=== PATIENT | female | born 1995 | race Caucasian/White ===

== ENCOUNTER → 2019-04-17 14:58 | Outpatient (BNVA) | payer OTHER, SELFPAY | PROVIDERS: PCP Nurse Practitioner; Visit Provider Obstetrics & Gynecology | DX: Z34.02 Encounter for supervision of normal first pregnancy, second trimester | CPT/HCPCS: 82950; 84315; 85027 ==

== ENCOUNTER → 2019-04-27 08:21 | Outpatient (BNVA) | payer OTHER, SELFPAY | PROVIDERS: PCP Nurse Practitioner; Visit Provider Nurse Practitioner Women's Health | DX: Z01.89 Encounter for other specified special examinations (principal) | CPT/HCPCS: 84315 ==

== ENCOUNTER 2019-04-30 09:18 | Outpatient (CLI) | payer OTHER, SELFPAY ==
--- NOTE | 2019-04-30 09:30 | USCV_ITS ---
Candace Velásquez Age: 23 Gender: F : 1995 Exam Date: 04/30/2019 09:39 Ordering Phys: Ricki Meyers MD ([email or web address]) Technologist: Perri Ordaz Exam Location: [facility] [place] Indication: murmur in BP: / HR: 76 Rhythm: Sinus Technical Quality: Good MEASUREMENTS (Male / Female) Normal Values 2D ECHO LV Diastolic Diameter PLAX 5.3 cm 4.2 - 5.9 / 3.9 - 5.3 cm LV Systolic Diameter PLAX 3.7 cm IVS Diastolic Thickness 0.8 cm 0.6 - 1.0 / 0.6 - 0.9 cm IVS Systolic Thickness 1.1 cm LVPW Diastolic Thickness 0.8 cm 0.6 - 1.0 / 0.6 - 0.9 cm LVPW Systolic Thickness 1.4 cm LVOT Diameter 2.2 cm LV Ejection Fraction 2D Teich 57.9 % LV Ejection Fraction MOD 2C 74.5 % LV Ejection Fraction 2C AL 76.0 % LA Diameter 3.7 cm LA Width 2.8 cm LA Height 5.0 cm RA Width 3.1 cm RA Height 4.1 cm M-MODE LV Diastolic Diameter MM 5.6 cm 4.2 - 5.9 / 3.9 - 5.3 cm LV Systolic Diameter MM 3.9 cm LV Ejection Fraction MM Teich 55.6 % IVS Diastolic Thickness MM 0.7 cm 0.6 - 1.0 / 0.6 - 0.9 cm IVS Systolic Thickness MM 1.1 cm LVPW Diastolic Thickness MM 0.9 cm 0.6 - 1.0 / 0.6 - 0.9 cm LVPW Systolic Thickness MM 1.2 cm Aortic Annulus Diameter 2.9 cm LA Ao Ratio MM 1.3 MV E Point Septal Separation 1.3 cm DOPPLER AV Peak Velocity 130.0 cm/s LVOT Peak Velocity 90.0 cm/s AV Area Cont Eq vti 2.6 cm squared AV Area Cont Eq pk 2.6 cm squared MV Peak Velocity 95.0 cm/s MV Area PHT 6.5 cm squared Mitral E to A Ratio 1.6 MV E' Velocity 20.0 cm/s Mitral E to MV E' Ratio 6.0 Mitral E to LV E' Lateral Ratio 4.8 Mitral E to LV E' Septal Ratio 8.0 TR Peak Velocity 222.0 cm/s TR Peak Gradient 19.6 mmHg Right Atrial Pressure 3.0 mmHg Pulmonary Artery Systolic Pressu 22.7 mmHg PV Peak Velocity 99.0 cm/s RV Acceleration Time 0.1 s FINDINGS Left Ventricle Normal left ventricular cavity size. No regional wall motion abnormalities. Normal left ventricular systolic function. Left ventricular ejection fraction is estimated at 55 %. Normal diastolic function. Right Ventricle The right ventricle is normal in size and function. Right Atrium The right atrium is normal in size. Left Atrium The left atrium is normal in size. Mitral Valve Structurally normal mitral valve without significant stenosis or prolapse. There is no mitral regurgitation. Aortic Valve Structurally normal trileaflet aortic valve. No aortic valve stenosis. Trace aortic valve regurgitation. Tricuspid Valve Mild tricuspid valve regurgitation. Pulmonic Valve Structurally normal pulmonic valve. Mild pulmonary valve regurgitation. Pericardium Normal pericardium without effusion. Aorta Normal ascending aorta dimension. CONCLUSIONS 1-Normal left ventricular cavity size. No regional wall motion abnormalities. Normal left ventricular systolic function. Left ventricular ejection fraction is estimated at 55 %. Normal diastolic function. 2-Structurally normal mitral valve without significant stenosis or prolapse. There is no mitral regurgitation. 3-Structurally normal trileaflet aortic valve. No aortic valve stenosis. Trace aortic valve regurgitation. 4-Mild tricuspid valve regurgitation. 5-Structurally normal pulmonic valve. Mild pulmonary valve regurgitation. 6-There is no pericardial effusion. 7-Right atrial pressure is around 5 mm of mercury. 8-There are no prior echocardiogram studies to compare. Ricki Meyers MD (Electronically Signed) Final Date: 01 May 2019 10:19 S
== END 2019-04-30 09:19 | disposition home or self-care (01) ==
LOC: US 09:22
PROVIDERS: PCP Nurse Practitioner; Visit Provider Internal Medicine Cardiovascular Disease
DX: Q34.9 Congenital malformation of respiratory system, unspecified (principal); R01.1 Cardiac murmur, unspecified
CPT/HCPCS: 93306

== ENCOUNTER → 2019-05-04 10:36 | Outpatient (BNVA) | payer OTHER, SELFPAY | PROVIDERS: PCP Nurse Practitioner; Visit Provider Obstetrics & Gynecology | DX: Z34.83 Encounter for supervision of other normal pregnancy, third trimester (principal) | CPT/HCPCS: 76816 ==

== ENCOUNTER → 2019-05-11 09:48 | Outpatient (BNVA) | payer OTHER, SELFPAY | PROVIDERS: PCP Nurse Practitioner; Visit Provider Nurse Practitioner Women's Health | DX: Z01.89 Encounter for other specified special examinations (principal) | CPT/HCPCS: 84315 ==

== ENCOUNTER → 2019-05-25 08:38 | Outpatient (BNVA) | payer OTHER, SELFPAY | PROVIDERS: PCP Nurse Practitioner; Visit Provider Obstetrics & Gynecology | DX: Z01.89 Encounter for other specified special examinations (principal) | CPT/HCPCS: 84315 ==

== ENCOUNTER → 2019-06-11 09:01 | Outpatient (BNVA) | payer OTHER, SELFPAY | PROVIDERS: PCP Nurse Practitioner; Visit Provider Obstetrics & Gynecology | DX: Z34.03 Encounter for supervision of normal first pregnancy, third trimester (principal); B37.3 Candidiasis of vulva and vagina | CPT/HCPCS: 84315; 87081 ==

== ENCOUNTER 2019-06-16 11:05 | Outpatient (CLI) | payer OTHER, SELFPAY ==
[2019-06-16 11:25] VITALS: BP 119/66; PULSE 104; RESP 17; TEMP 36.6
--- NOTE | 2019-06-16 11:44 | USR_ITS ---
PROCEDURE INFORMATION: Exam: US , Limited Exam date and time: 06/16/2019 11:46 AM Age: 23 years old Clinical indication: complicated by abdominal or pelvic pain; Lower; Third trimester; Gestational age or lmp: 37 wks 2 days; ; Additional info: Rule out abruption TECHNIQUE: Imaging protocol: Real-time ultrasound of the maternal uterus with image documentation. Exam focused on the clinical indication. COMPARISON: [place] [id number] 05/04/2019 10:36 AM FINDINGS: GESTATION: Gestation: Intrauterine gestation in vertex position. Positive cardiac activity is documented at 144 bpm. Cervix: Not visualized. Amniotic fluid: Subjectively within normal limits with the deepest pocket measures approximately 6.6 x 6.1 cm. Placenta: The placenta is posterior-fundal in location and unremarkable upon limited evaluation. US/US OB limited [id number] IMPRESSION: 1. Single live intrauterine in vertex position with positive cardiac activity documented at 144 bpm. 2. The placenta is posterior-fundal in location and appears unremarkable upon limited evaluation. If there is continued concern for abruption, continued clinical surveillance is suggested with follow-up imaging as warranted. 3. Amniotic fluid appears within normal limits with the deepest pocket measuring approximately 6.6 x 6.1 cm.
[2019-06-16 11:59] VITALS: BP 120/67; PULSE 101; RESP 16
[2019-06-16 12:10] VITALS: BMI 42.1
[2019-06-16 13:41] VITALS: BP 133/65; PULSE 98
== END 2019-06-16 14:40 | disposition home or self-care (01) ==
LOC: ONCMED 11:38 → OBGYN 13:50 → OPOB 06-18 14:23
PROVIDERS: PCP Nurse Practitioner; Visit Provider Obstetrics & Gynecology
DX: Z04.89 Encounter for examination and observation for other specified reasons (principal)
CPT/HCPCS: 59025; 76815; 99211

== ENCOUNTER 2019-06-18 10:00 | Outpatient (CLI) | payer OTHER, SELFPAY ==
[2019-06-18] VITALS (10 sets, daily range): BP systolic 0–131; BP diastolic 0–77; PULSE 84–98; RESP 18; TEMP 36.9; BMI 42.2
--- NOTE | 2019-06-18 10:14 | PC.NURSE ---
UPON ARRIVAL PATIENT STATES SHE IS NOT IN ANY PAIN, NO COMPLAINTS OF HEADACHES, AND NO BLURRED VISION.
--- NOTE | 2019-06-18 10:36 | US_ITS ---
WS: [id number] OB ultrasound for biophysical profile, 06/18/2019 Clinical Data: Increased BP Comparison: OB ultrasound, 06/16/2019. Findings: There is a single intrauterine in the vertex presentation. The heart rate is 147 beat s per minute. The cervical length is 3.7 and it is closed. The placenta is posterior and fundal. The biophysical profile is 8 of 8 with normal scores for breathing, movement, posture and tone and amniotic fluid volume. US/US OB BPP NST [id number] Impression: 1. Single intrauterine in vertex presentation. 2. Biophysical profile 8 of 8. 3. heart rate 147 beats per minute.
--- NOTE | 2019-06-18 11:03 | PC.NURSE ---
Ultra Sound being performed
[2019-06-18 11:26] LABS: Add Urine Microscopic? YES; Bilirubin Urine Neg (NEGATIVE); Blood Urine 2+ (Negative); Glucose Urine UA Norm (Normal); Ketones Urine Negative (Negative); Leukocyte Esterase Urine Negative (Negative); Nitrate Urine Negative (Negative); Protein Urine Neg (Negative); Urine Appearance Clear (CLEAR); Urine Color Yellow (Yellow); Urobilinogen Urine Norm (Negative); pH Urine 7 (5-7)
[2019-06-18 11:27] LABS: Basophils # 0.1 10^3/uL (0.0-0.1); Basophils % 0.4 %; Eosinophils # 0.2 10^3/uL (0.0-0.8); Hematocrit 33.7 % (37.0-47.0); Hemoglobin 10.9 g/dL (11.5-15.3); Lymphocytes # 3.1 10^3/uL (0.8-4.8); Lymphocytes % 18.9 %; Mean Corpuscular HGB Conc 32.3 g/dL (30.0-36.0); Mean Corpuscular Hemoglobin 27.3 pg (28.0-34.0); Mean Corpuscular Volume 84.3 fL (81-99); Mean Platelet Volume 10.1 fL (7.4-10.4); Monocytes % 6.2 %; Neutrophils # 11.8 10^3/uL (1.8-7.7); Neutrophils % 71.1 %; Nucleated Red Blood Cells % 0 %; Platelet Count 436 10^3/cmm (130-400); Red Cell Distribution Width 13.3 % (12.1-15.1); White Blood Count 16.6 10^3/uL (4.0-10.0)
[2019-06-18 11:32] LABS: Add Urine Culture? No; Bacteria Urine 1+; Mucus Urine 1+; Squamous Epithelial Cell Urine 0-4 (0-5)
[2019-06-18 11:38] LABS: Alanine Aminotransferase 8 U/L (0-33); Albumin Level 3.7 g/dL (3.5-5.2); Alkaline Phosphatase 135 IU/L (35-105); Anion Gap 17.9 (5-19); Aspartate Amino Transferase 15 U/L (0-32); Blood Urea Nitrogen 7 mg/dL (6-20); Calcium 9.8 mg/dL (8.5-10.5); Carbon Dioxide 20 mmol/L (22-29); Chloride 102 mmol/L (98-107); Globulin 3.2 g/dL (1.3-4.6); Glomerular Filtration Rate 122.8 mL/min (90-130); Glucose 104 mg/dL (65-115); Osmolality Calculated 278 mOsm/kg (285-295); Potassium 3.9 mmol/L (3.5-5.1); Sodium 136 mmol/L (136-145); Total Bilirubin 0.2 mg/dL (0.15-1.2); Total Protein 6.9 g/dL (6.6-8.7); Uric Acid 4.4 mg/dL (2.4-5.7)
[2019-06-18 11:40] LABS: Urine Creatinine 143 mg/dL (28-217); Urine Protein Random 14 mg/dL
--- NOTE | 2019-06-21 09:42 | P.ANESASSM_ITS ---
Pre-Anesthetic Assessment Pre-Anesthetic Assessment: Height/Weight: Height 1.78 m Weight 133.356 kg Temp Pulse Resp BP 98.4 F 84 18 119/72 06/18/19 12:04 06/18/19 12:04 06/18/19 12:04 06/18/19 12:04 Social: Social History: Tobacco (quit 2015) and No alcohol Exam: Pre-Anes Outpt Exam: alert, oriented x 3, clear to auscultation bilaterally and regular rate & rhythm Airway: Submandibular: WNL Cervical ROM: WNL MP: 3 Dentition: Other (ok) History/ROS: No significant history except as noted Pulmonary: Pulmonary: Asthma (mild) CV/HEM: CV/HEM: None reported : : None reported Hepatic: Hepatic: None reported GI: GI: GERD (occ) Metabolic: Metabolic: Morbid obesity Musc/skel: Musc/skel: Fibromyalgia Neuropsych: Neuropsych: Anxiety and Depression Comments: PTSD Anesthetic Plan: ASA status: 2 Anesthesia: Anesthesia Evaluation and Eval. for regional block (labor epidural) Risk of > 500 ml blood loss (7ml/kg in children): No PFSH Anesthesia PFSH: Medical History Chronic headache Fibromyalgia She states that she was diagnosed with fibromyalgia in 2018. Has never been on any medication for this. Mild intermittent asthma without complication Diagnosed with asthma as a child. She states that she is largely asymptomatic and uses her albuterol inhaler 1 or 2 times a month. Patient denies medical problems : Patient denies history of PE/DVT/clotting disorders, asthma, lung, liver heart, thyroid, kidney disease, hypertension or diabetes, genital herpes for herself or her partner. PCP: at the [facility] PTSD (post-traumatic stress disorder) States that she has anxiety and depression which was previously managed with amitriptyline BuSpar and Lexapro. She states that when she found out she was she stopped using these medications as she was worried about its eff ect on the . Currently denies suicidal/homicidal ideation. This is managed by Dr. garcias at the [facility] Social History Smoking and tobacco status: former smoker Alcohol intake: former Desire information about alcohol rehabilitation?: No Additional social history: - Tobacco use: Started smoking at age 17 and smoked 1/2-1 pack per day until she quit at age 19. Denies any tobacco use since then. Alcohol Use ? denies Drug Use: Denies Current Work/Study Status: Unemployed not looking for work. Female Reproductive History: : 1 Data Anesthesia CBC & Chem 7: 06/18/19 10:45 06/18/19 10:45 Cardiac Studies: No Data to Display
== END 2019-06-18 12:00 | disposition home or self-care (01) ==
LOC: OPOB 10:10 → OBGYN 11:53 → OPOB 14:18
PROVIDERS: PCP Nurse Practitioner; Visit Provider Obstetrics & Gynecology
DX: O16.9 Unspecified maternal hypertension, unspecified trimester (principal); Z3A.00 Weeks of gestation of pregnancy not specified
CPT/HCPCS: 36415; 76819; 80053; 81001; 82570; 84156; 84315; 84550; 85025; 99211

== ENCOUNTER → 2019-06-26 07:59 | Outpatient (BNVA) | payer OTHER, SELFPAY | PROVIDERS: PCP Nurse Practitioner; Visit Provider Obstetrics & Gynecology | DX: Z34.03 Encounter for supervision of normal first pregnancy, third trimester (principal) | CPT/HCPCS: 80053; 84315 ==

== ENCOUNTER → 2019-07-02 08:03 | Outpatient (BNVA) | payer OTHER, SELFPAY | PROVIDERS: PCP Nurse Practitioner; Visit Provider Obstetrics & Gynecology | DX: Z46.89 Encounter for fitting and adjustment of other specified devices (principal) | CPT/HCPCS: 84315 ==

== ENCOUNTER 2019-07-04 19:11 | Inpatient (IN) | payer OTHER, SELFPAY ==
[2019-07-04] VITALS (17 sets, daily range): BP systolic 0–144; BP diastolic 0–96; PULSE 80–96; RESP 14–16; TEMP 36.8; BMI 43.6
[2019-07-04] MEDS: miSOPROStol 100 mcg tablet 25 MCG VAGINAL (20:29)
[2019-07-04 20:40] LABS: Basophils # 0.1 10^3/uL (0.0-0.1); Basophils % 0.4 %; Eosinophils # 0.2 10^3/uL (0.0-0.8); Eosinophils % 1.5 %; Hematocrit 31.3 % (37.0-47.0); Hemoglobin 10.3 g/dL (11.5-15.3); Lymphocytes # 3.6 10^3/uL (0.8-4.8); Lymphocytes % 23.1 %; Mean Corpuscular HGB Conc 32.9 g/dL (30.0-36.0); Mean Corpuscular Hemoglobin 27.8 pg (28.0-34.0); Mean Corpuscular Volume 84.6 fL (81-99); Mean Platelet Volume 10.3 fL (7.4-10.4); Monocytes # 0.9 10^3/uL (0.2-0.9); Monocytes % 6.1 %; Neutrophils # 10.3 10^3/uL (1.8-7.7); Neutrophils % 67.1 %; Nucleated Red Blood Cells % 0 %; Platelet Count 411 10^3/cmm (130-400); Red Cell Distribution Width 13.6 % (12.1-15.1); White Blood Count 15.4 10^3/uL (4.0-10.0)
[2019-07-04 20:49] LABS: Add Urine Microscopic? YES; Bilirubin Urine Neg (NEGATIVE); Blood Urine 3+ (Negative); Glucose Urine UA Norm (Normal); Ketones Urine 1+ (Negative); Leukocyte Esterase Urine Negative (Negative); Nitrate Urine Negative (Negative); Protein Urine 1+ (Negative); Urine Appearance Turbid (CLEAR); Urine Color Red (Yellow); Urobilinogen Urine Norm (Negative); pH Urine 7 (5-7)
[2019-07-04 20:59] LABS: Alanine Aminotransferase 14 U/L (0-33); Albumin Level 3.4 g/dL (3.5-5.2); Alkaline Phosphatase 149 IU/L (35-105); Anion Gap 17.9 (5-19); Aspartate Amino Transferase 17 U/L (0-32); Blood Urea Nitrogen 14 mg/dL (6-20); Calcium 10.1 mg/dL (8.5-10.5); Carbon Dioxide 19 mmol/L (22-29); Chloride 102 mmol/L (98-107); Globulin 2.9 g/dL (1.3-4.6); Glucose 107 mg/dL (65-115); Osmolality Calculated 277 mOsm/kg (285-295); Potassium 3.9 mmol/L (3.5-5.1); Sodium 135 mmol/L (136-145); Total Bilirubin 0.2 mg/dL (0.15-1.2); Total Protein 6.3 g/dL (6.6-8.7)
[2019-07-04 21:00] LABS: Urine Creatinine 168 mg/dL (28-217)
[2019-07-04 21:04] LABS: UPRO/UCREAT Ratio 0.14 mg/mg CR; Urine Protein Random 24 mg/dL
[2019-07-04 21:32] LABS: Add Urine Culture? Yes; Bacteria Urine 2+; RBC Urine TOO NUMEROUS TO CNT /hpf (0-2); Squamous Epithelial Cell Urine 0-4 (0-5); WBC Urine 0-4 /hpf (0-5)
[2019-07-05] VITALS (103 sets, daily range): BP systolic 0–158; BP diastolic 0–96; PULSE 69–104; RESP 16–18; TEMP 36.7–36.9; O2SAT 93–100
[2019-07-05] MEDS: miSOPROStol 100 mcg tablet 25 MCG VAGINAL ×2 (00:56→04:36)
--- NOTE | 2019-07-05 08:07 | P.HP_ITS ---
Providers/Chief Complaint Admitting Physician: Macario Shelby DO Primary IT COMMUNICATIONS MANAGER: Dr. Vidales Primary Care Provider: CASTILLO Christie Chief Complaint: induction HPI IT COMMUNICATIONS MANAGER History of Present Illness Chief complaint: Induction of labor 39+6 History chief complaint Candace Velásquez is a 23 year old female 1 para 0 with a EDC of 07/05/2019 admitted last p.m. for cervical ripening with induction of labor. Time of admission her cervix described as being 60% 2 cm vertex -2 station. She had a reassuring category 1 tracing. She did undergo Tato Prostin 0.25 mg per vagina q. 4 hours x 3 this morning she is resting comfortably in bed has had breakfast. She has no complaints is having some uterine contractions. During the evening her blood pressures were 120s to 130s over 80s. Previously in the office she had had a blood pressure diastolic in the 90s. Labs last night were unremarkable platelets over 400,000 normal chemistries with liver functions however creatinine was elevated at 1.1. Her protein/creatinine ratio is 0.14. She denies any signs and symptoms of preeclampsia no headaches no visual changes no right upper quadrant pain no nausea or vomiting no excessive swelling. Results OB Labs - EDPS----> OBI: 11 28:10 PPE: LABS: 12/13/2018 Blood type: O positive Antibody screen : Negative Intake CBC: 14.7<12.9/38.7>437 Cystic fibrosis: declined Rubella : Immune Hepatitis B surface antigen: Nonreactive Hepatitis C antibody: Nonreactive RPR: Nonreactive HIV: declined Drug screen: negative Urine culture: 10,000-20,000 contaminants, no GBS TSH: 1.27-normal early GCT: 93 12/22/2018 Gonorrhea: Negative Chlamydia: Negative Pap smear: Negative for intraepithelial lesion or malignancy 01/19/2019 Quad screen: Declined. 02/16/2019: CBC: 15.1<10.9/33.4> 488---started on ferrous sulfate 325 mg twice a day 04/17/2019 28 week CBC: 14.1 < 10.6/32.5 > 475 GCT: 124 06/11/19 GBS: negative 06/18/2019 Urine culture: Hematuria: 10,000-20,000 contaminants, no GBS L&D---elevated BP--- CBC-16.6<10.9/37.7.> 436 AST/ALT-15/8; BUN/creatinine-7/0.6 Protein creatinine ratio-0.10-normal Uric acid-4.4-normal OB Ultrasound LMP of 09/28/2018 EDC of 07/05/2019 which based on LMP 1) 02/16/2019([facility]-anatomy) AUA-20w1d ZULMA by sono-07/07/2019 S=D -------> male, cephalic, posterior grade 1 placenta without previa, visually normal fluid, LEAD ASSISTANT MANAGER 4.3, cervix transvaginally 4.2 cm, EFW 310 g, 11 ounces, 25 percentile. Visualized anatomy appears normal except for Profile, Nose & Lips, 4 Chamber Heart, Diaphragm, Stomach, Kidneys, Bladder,3 Vessel Cord that were no t clearly visualized secondary to gestational age, patient body habitus and position. Recommend repeat ultrasound at 26 weeks to reassess the structures. 2)04/06/2019([facility]-f/u anatomy) AUA-27w4d ZULMA by sono-07/02/19 S=D ------> single live intrauterine , cephalic, medial, fundal posterior grade 1 placenta without previa, KEENAN 15.5 cm, EFW-2 pounds 4 ounces, 32 percentile. Previously nonvisualized anatomy-Profile, Nose & Lips, 4 Chamber Heart, Diaphragm, Stomach, Kidneys, Bladder,3 Vessel Cord--were visualized and appears within normal limits except for the right kidney which was not clearly seen. Repeat sonogram to assess kidney in 3 to 4 weeks 3) 05/04/2019([facility]-f/u anatomy) AUA-31w5d ZULMA by sono-07/01/2019 S=D --------> single live intrauterine , cephalic, grade 1 fundal placenta, KEENAN 13 cm, EFW 1785 g, 51 percentile. Kidneys appear normal. 4) 06/16/2019([facility] [place]-L&D s/p fall) ------------> single live intrauterine , cephalic, posterior fundal placenta without abruption, LEAD ASSISTANT MANAGER-6.6 cm. Present Details : 1 Para: 0 Labs Rubella: Immune RPR: Negative GBS: Negative Review of Systems Const: Denies: fever, chills or body aches Eyes: Denies: change in vision Card: Denies: chest pain, palpitations, irregular heart rhythm, swelling of feet/ankles or lightheadedness Resp: Denies: shortness of breath or non-productive cough GI: Denies: abdominal pain or nausea : Denies: difficulty urinating, painful urination, urinary urgency, genital lesion, genital itching or vaginal odor Musc: Denies: extremity pain or extremity swelling Skin/Breast: Denies: rash Neuro: Denies: headache, numbness in extremities or weakness in extremities Psych: Denies: anxiety or depression Endo: Denies: cold intolerance or heat intolerance David/Lymph: Denies: easy bruising All/Imm: Denies: hives Medications/Allergies Allergies Allergy/AdvReac Type Severity Reaction Status Date / Time sulfamethoxazole Allergy Hives Verified 07/02/19 08:04 [From Bactrim] trimethoprim [From Bactrim] Allergy Hives Verified 07/02/19 08:04 PFSH IT COMMUNICATIONS MANAGER PFSH: Medical History Chronic headache Fibromyalgia She states that she was diagnosed with fibromyalgia in 2018. Has never been on any medication for this. Mild intermittent asthma without complication Diagnosed with asthma as a child. She states that she is largely asymptomatic and uses her albuterol inhaler 1 or 2 times a month. Patient denies medical problems : Patient denies history of PE/DVT/clotting disorders, asthma, lung, liver heart, thyroid, kidney disease, hypertension or diabetes, genital herpes for herself or her partner. PCP: at [facility] PTSD (post-traumatic stress disorder) States that she has anxiety and depression which was previously managed with amitriptyline BuSpar and Lexapro. She states that when she found out she was she stopped using these medications as she was worried about its effect on the . Currently denies suicidal/homicidal ideation. This is managed by Dr. garcias at the [facility] Social History Smoking and tobacco status: former smoker Alcohol intake: unknown Additional social history: - Tobacco use: Started smoking at age 17 and smoked 1/2-1 pack per day until she quit at age 19. Denies any tobacco use since then. Alcohol Use ? denies Drug Use: Denies Current Work/Study Status: Unemployed not looking for work. Other Female Reproductive History: Hx Age of Menarche: 11 Menstrual history comments: Menstrual history comments: Menarche at age 11 with regular 28-day cycles lasting for 7 to 8 days with normal flow Sexual History: Sexual History Comment: Coitarche he at age 17, less than 5 lifetime partners, she and her Reymundo have been together since 2013. He is a industrial truck mechanic. Hx Sexually Transmitted Diseases: No (On 12/13/2018 hepatitis B, hepatitis C and syphilis were negative. She declined HIV testing stating that it was negative in the [employer].) Contraception: Contraception History Comment: Has used Depo-Provera, Nexplanon, patches and control pills in the past for contraception. Depo- Provera made her carmichael but otherwise she like the other forms of contraception. She used the control pill low Ovral which worked well for her and this is what she would like to use as well Personal Safety: Do you feel safe at home: Yes History History History 1 Term 0 Miscarriages/Ectopic 0 0 Living Children 0 Care ZULMA Calculator Estimated Delivery Date Method Current WG Current Estimate 07/05/19 LMP (Certain) 40w 0d Expected Delivery Route/Plan Vaginal Specific Issues/Plans * Obesity-BMI 41 * Anemia in -compliant with iron * History of PTSD with depression-on medication prior to the -no med ication during -higher risk of depression OB Visit Log Initial Weight: 117.934 kg Date -?-?-?-?-?-?-?-?-?-?-?- EGA Weight BP Albumin -?-?-?-?-?-?-?-?-?-?-?-?- Glucose Nitrate -?-?-?-?-?-?-?-?-?-?-?-?- Blood Fun Ht PRES HR MVMT -?-?-?-?-?-?-?-?-?-?-?-?- Edema Dilation Effacement -?-?-?-?-?-?-?-?-?-?-?-?- Station 12/07/18 -?-?-?-?-?-?-?-?-?-?-?- 10w 0d 117.934 kg (+0 g) 131/83 TRACE NORMAL -?-?-?-?-?-?-?-?-?-?-?-?- NEGATIVE -?-?-?-?-?-?-?-?-?-?-?-?- -?-?-?-?-?-?-?-?-?-?-?-?- NOT EXAMINE -?-?-?-?-?-?-?-?-?-?-?-?- 12/13/18 -?-?-?-?-?-?-?-?-?-?-?- 10w 6d 118.841 kg (+907.184 g) 112/80 NORMAL NEGATIVE -?-?-?-?-?-?-?-?-?-?-?-?- NORMAL -?-?-?-?-?-?-?-?-?-?-?-?- 165bpm/ present by ultrasoun d -?-?-?-?-?-?-?-?-?-?-?-?- negative NOT EXAMINED -?-?-?-?-?-?-?-?-?-?-?-?- 12/22/18 -?-?-?-?-?-?-?-?-?-?-?- 12w 1d 117.934 kg (+0 g) 108/70 NORMAL 1+ ALBUMIN -?-?--?-?-?-?-?-?-?-?-?-?- NEGATIVE -?-?-?-?--?-?-?-?-?-?-?-?- 155bpm/ present by ultrasoun d -?-?-?-?-?-?-?--?-?-?-?-?- negative CLOSED UNEFFACED -?-?-?-?-?-?-?-?-?-?-?-?- 01/19/19 -?-?-?-?-?-?-?-?-?-?-?- 16w 1d 118.9 kg (+966.151 g) 130/88 TRACE ALBUMIN NORMAL -?-?-?-?-?-?-?-?-?-?-?-?- NEGATIVE -?-?-?-?-?-?-?-?-?-?-?-?- 159bpm/ present by gracy P RESENT -?-?-?-?-?-?-?-?-?-?-?-?- negative -?-?-?-?-?-?-?-?-?-?-?-?- 02/16/19 -?-?-?-?-?-?-?-?-?-?-?- 20w 1d 118.388 kg (+453.592 g) 122/68 NORMAL NEGATIVE -?-?-?-?-?-?--?-?-?-?-?-?- NEGATIVE -?-?-?-?-?-?-?-?--?-?-?-?- 157bpm/ present by casi d PRESENT -?-?-?-?--?-?-?-?-?-?-?-?- negative NOT EXAMINED -?-?-?-?-?-?-?-?-?-?-?-?- 03/13/19 -?-?-?-?-?-?-?-?-?-?-?- 23w 5d 120.202 kg (+2.268 kg) 130/90 NORMAL -?-?-?-?-?-?-?-?-?-?-?-?- NEGATIVE -?-?-?-?-?-?-?-?-?-?-?-?- 24CM 145bpm/ present by yonie P RESENT -?-?-?-?-?-?-?-?-?-?-?-?- trace in hands trace in feet neg in face NOT EXAMINED -?-?-?-?-?-?-?-?-?-?-?-?- 04/17/19 -?-?-?-?-?-?-?-?-?-?-?- 28w 5d 125.645 kg (+7.711 kg) 122/80 NEGATIVE -?-?-?-?-?-?-?-?-?-?-?-?- NEGATIVE -?-?-?-?-?-?-?-?-?-?-?-?- 29CM 150bpm/[facility] [place] [facility] -?-?-?-?-?-?-?-?-?-?-?-?- negative NOT EXAMINED NOT EXAMINED -?-?-?-?-?-?-?-?-?-?-?-?- 04/27/19 -?-?-?-?-?-?-?-?-?-?-?- 30w 1d 125.191 kg (+7.257 kg) 122/82 NEGATIVE -?-?-?-?-?-?-?-?-?-?-?-?- NEGATIVE -?-?-?-?-?-?-?-?-?-?-?-?- 31CM 150bpm/[facility] [place] [facility] -?-?-?-?-?-?-?-?-?-?-?-?- negative CLOSED -?-?-?-?-?-?-?-?-?-?-?-?- 05/11/19 -?-?-?-?-?-?-?-?-?-?-?- 32w 1d 127.006 kg (+9.072 kg) 112/84 NEGATIVE -?-?-?-?-?-?-?-?-?-?-?-?- NEGATIVE -?-?-?-?-?-?-?-?-?-?-?-?- 33CM 142bpm/[facility] [place] [facility] -?-?-?-?-?-?-?-?-?-?-?-?- trace in hands trace in feet NOT EXAMINED -?-?-?-?-?-?-?-?-?-?-?-?- 05/23/19 -?-?-?-?-?-?-?-?-?-?-?- 33w 6d -?-?-?-?-?-?-?-?-?-?-?-?- -?-?-?-?-?-?-?-?-?-?-?-?- -?-?-?-?-?-?-?-?-?-?-?-?- -?-?-?-?-?-?-?-?-?-?-?-?- 05/25/19 -?-?-?-?-?-?-?-?-?-?-?- 34w 1d Neg (Nega tive) -?-?-?-?-?-?-?-?-?-?-?-?- Norm (Normal) Negative (Negat alo) -?-?-?-?-?-?-?-?-?-?-?-?- Trace-inta (Negative) H -?-?-?-?-?-?-?-?-?-?-?-?- -?-?-?-?-?-?-?-?-?-?-?-?- 05/25/19 -?-?-?-?-?-?-?-?-?-?-?- 34w 1d 130.181 kg (+12.247 kg) 104/68 neg -?-?-?-?-?-?-?-?-?-?-?-?- neg -?-?-?-?-?-?-?-?-?-?-?-?- 35 141 present -?-?-?-?-?-?-?-?-?-?-?-?- Trace in feet -?-?-?-?-?-?-?-?-?-?-?-?- 06/11/19 -?-?-?-?-?-?-?-?-?-?-?- 36w 4d 132.449 kg (+14.515 kg) 136/88 Neg (Negati ve) -?-?-?-?-?-?-?-?-?-?-?-?- Norm (Normal) Negative (Negat alo) -?-?-?-?-?-?-?-?-?-?-?-?- Neg (Negative) 36 Cephalic 121 active -?-?-?-?-?-?-?-?-?-?-?-?- 1+ 1 0 -?-?-?-?-?-?-?-?-?-?-?-?- -4 06/18/19 -?-?-?-?-?-?-?-?-?-?-?- 37w 4d 133.81 kg (+15.876 kg) 128/94 126/90 Neg (Negative) -?-?-?-?-?-?-?-?-?--?-?-?- Norm (Normal) Negative (Negat alo) -?-?-?-?-?-?-?-?-?-?-?-?- 1+ (Negative) H 37 Cephalic 142 active -?-?-?-?-?-?-?-?-?-?-?-?- 1+ 1 20 -?-?-?-?-?-?-?-?-?-?-?-?- -4 06/26/19 -?-?-?-?-?-?-?-?-?-?-?- 38w 5d 131.995 kg (+14.061 kg) 120/88 2+ (Negativ e) H -?-?-?-?-?-?-?-?-?-?-?-?- Norm (Normal) Positive (Negat alo) H -?-?-?-?-?-?-?-?-?-?-?-?- 3+ (Negative) H 38 Cephalic 151 active -?-?-?-?-?-?-?-?-?-?-?-?- 1+ 1 20 -?-?-?-?-?-?-?-?-?-?-?-?- -4 07/02/19 -?-?-?-?-?-?-?-?-?-?--?- 39w 4d 134.263 kg (+16.329 kg) 128/88 Neg (Negati ve) -?-?-?-?-?-?-?-?-?-?-?-?- Norm (Normal) Negative (Negat alo) -?-?-?-?--?-?-?-?-?-?-?-?- Trace (Negative) H 40 Cephalic 144 active -?-?-?-?-?-?-?-?--?-?-?-?- absent 1-2 50 -?-?-?-?-?-?-?-?-?-?-?-?- -2 07/04/19 -?-?-?-?-?-?-?-?-?-?-?- 39w 6d 137.892 kg (+19.958 kg) 144/96 100/49 0/0 130/82 0/0 140/71 140/66 0/0 128/65 134/60 125/74 0/0 132/72 120/59 126/59 109/62 119/69 0/0 108/54 118/69 97/45 102/44 99/45 99/44 98/49 124/58 122/64 129/68 85/56 112/56 119/66 117/66 0/0 131/71 128/74 0/0 122/71 0/0 112/69 1+ (Negative) H -?-?-?-?-?-?-?-?-?-?-?-?- Norm (Normal) Negative (Negat alo) -?-?-?-?-?-?-?-?--?-?-?-?- 3+ (Negative) H Ve rtex Vertex Vertex 145 155 135 125 135 125 130 125 130 130 125 130 -?-?-?-?-?-?-?-?-?-?-?-?- -?-?-?-?-?-?-?-?-?--?-?-?- -2 -2 -2 Notes Visit Date: 07/04/19 No visit notes to display Visit Date: 07/02/19 AP@ 39w4d----> no complaints; good cervical change from last visit-me mbranes stripped-increase ambulation; GBS negative; anemia on iron; thrombocythemia-stable; induction scheduled for 07/04/2019 in the evening; depression and asthma stable without medication; normotensive; denies urinary symptoms-urine culture negative from last visit Kelly Scherer MD on 07/02/19 Visit Date: 06/26/19 AP@ 38w5d-----> no complaints; anemia compliant with iron-hemoglobin stable; oadoosefvjchefp-eatohc-bfxrjha prepregnancy; GBS negative; asthma and PTSD-stable; yeast infection resolved with Diflucan; induction discussed and patient will call back with what she wants to do; encourage ambulation; positive nitrates and blood in urine dip-denies urinary symptoms-urine culture sent again today Kelly Scherer MD on 06/30/19 Visit Date: 06/18/19 AP@ 37w4d-----> no complaints; labor consents reviewed; contraception, commercial cleaner discussed; +1 hematuria today-urine culture sent no other sign of i nfection; depression and asthma-stable; elevated blood pressure-to labor and delivery to rule out gestational hypertension versus preeclampsia; anemia compliant with iron; echo results discussed with patient Kelly Scherer MD on 06/18/19 Visit Date: 06/11/19 AP @ 36w4d-----> obesity in -excessive weight gain-suggestions offered; GBS done today; encourage ambulation after 37 weeks; anemia compliant with iron; history of PTSD-increased risk for depression;? History of cardiac abnormality however echocardiogram and visit with cardiology completed-echo was within normal limits; contraception, commercial cleaner, circumcision discussed; asthma-stable; frryjpmzznmamtz-zrzamc-oygvhwdp post Kelly Scherer MD on 06/18/19 Visit Date: 05/25/19 No visit notes to display Visit Date: 05/25/19 No visit notes to display Visit Date: 05/23/19 PRELOAD NOTE Cassandra Lott RN on 05/23/19 Visit Date: 05/11/19 AP @ 32.1 WG - thrombocythemia; awaiting appt with heme; rpt hemagram at 34 weeks - depression; managed without medication - sono at 31 weeks--visible left kidney; no further f/u - anemia; cont with daily iron/increase in diet and in pnv - yeast infection; treated at last visit; resolved - again encouraged tdap; [facility] - symptomology in third trimester discussed. Visit Date: 04/27/19 AP @ 30.1 WG -Thrombocythemia;platelets continue to be elevated; refer to hematology -Depression; managed without medication. -Obesity; 16 pound weight gain thus far; weight goals for the rest of the discussed. -Anemia; compliant with twice daily iron therapy as well as increased iron in the diet and her prenatals with iron. ?No change in her H&H at 28 weeks; repeat hemogram at 34 weeks. -nonvisualized anatomy; profile, nose/lips, four-chamber heart, diaphragm, stomach, bladder, three-vessel cord all visible at her follow-up 27- week sonogram; the left kidney was visualized but was unable to visualize the right kidney. ?Normal KEENAN 15.49; rescan for full evaluation of the right kidney next week. -yeast infection; noted on exam and c/w wet prep;desires otc meds;start monistat 7 - labor precautions and kick counts discussed - Again encouraged Tdap by 32 weeks - education classes scheduled - Anesthesia evaluation discussed and encouraged - GCT/CBC at last visit; discussed today Visit Date: 04/17/19 AP at 28 5/7 weeks. The patient was counseled regarding care, signs and symptoms of labor. ?Patient was counseled now she will be having visits are every 2 weeks. ?She was also counseled regarding diabetes screening. ?Diabetes screening performed today. ?Latest OB ultrasound reports spending. Visit Date: 03/13/19 blood pressure recheck: 108/72 AP @ 23.5 WG - Thrombocythemia; remains elevate at 488; repeat at 28 weeks - Depression; managed without medication; continue to follow - Questionable cardiac abnormality; appointment scheduled in April with [facility] - Incomplete anatomy scan; repeat sono at 26 weeks - GERD; managed without medication - Flu vaccine discussed and encouraged. - labor precautions and kick counts discussed. - education classes discussed and encouraged; schedule provided. - Symptomology of late second trimester discussed - CBC, GCT at next visit. - O POSITIVE BLOOD TYPE Visit Date: 02/16/19 AP @ 20w1d-----> no complaints; no complaints asthma and acid reflux controlled with medication; daily headaches-controlled with Tylenol as needed- neurology consult discussed versus suppressive therapy and she currently declines these; ? ?History of cardiac abnormality-patient has been noncompliant with echocardiogram-counseling done and this needs to be completed prior to 24 weeks gestation; thrombocythemia-repeat CBC; anatomy sonogram within normal limits except for incomplete anatomy-reassess at 26 weeks; circumcision, con traception, pediatricians discussed today Visit Date: 01/19/19 AP at 16-1/7 WG. ?Complained of chronic headaches - acute and suppressive therapy discussed with patient and declined at this time. ?Patient scheduled for cardiac echo due to possible cardiac abnormality. ?Quad screen declined. ?Flu vaccine discussed and refused. ?Ultrasound for anatomic survey in approximately 4 weeks. Visit Date: 12/22/18 OB exam at 12w1d-----> GERD controlled on medication; gonorrhea Chlamydia and Pap smear done today; asthma controlled on medication; depression stable off of medication-precautions reviewed; early GCT and TSH normal; labs normal; thrombocythemia-repeat platelet count at 20 weeks; structural abnormality in heart ???---> echocardiogram scheduled; quad screen if desires at next visit Visit Date: 12/13/[address] visit at 10 weeks and 6 days----> obesity-early GCT and TSH done; labs drawn-declines cystic fibrosis and panorama and HIV; asthma- counseling done; fibromyalgia-counseling done; depression-does not want any medication and is asymptomatic-continue to monitor; gonorrhea and Chlamydia at next visit; Pap smear records requested and if not received will do Pap at next visit; nausea and vomiting improved-does not want medication; GERD-counseling done-continue Pepcid Visit Date: 12/07/18 OBI @ 10.0 WG-----------> with a LMP of 09/28/2018, EDC of 07/05/2019 which based on LMP. - Positive vomiting; attempting Unisom/Pepcid/B6; dietary management discussed; follow-up next visit - Fibromyalgia; managed with amitriptyline prior to ; stopped use at the beginning of ; no concerns at this time. - Depression and anxiety; present prior to ;Was managed with BuSpar and Lexapro; stopped their use on her own at the beginning of ; Flash prescribed her BuSpar and Zoloft; the patient has not started these as she feels her symptoms are managed without medication at this time and desires to speak to Dr. Vidales at her next visit about this. -IBS; more constipation issues; discussed dietary and medical management. -Ob packet provided. Reviewed routine vist schedule, labs, approved medications in , discussed the importance of avoiding nicotine/alcohol/drugs and the effects this has on her and the , and when to notify the doctor. Medical and obstetrical history reviewed. ? -Continue vitamins. - labs at next visit; discussed NIPT, QUAD, AFP, CF. All questions answered to her satisfaction. Greater than 50% of the visit was spent in counseling and coordinating obstetrical care. Total visit time: 30 minutes. Vitals/I&O/Wt Last Vital Signs Temp 98.2 F 07/05/19 04:12 Pulse 80 07/05/19 06:37 Resp 16 07/05/19 04:12 BP 112/69 07/05/19 06:37 Weight last 48 hrs Weight 137.892 kg Physical Exam Narrative: EXAM NARRATIVE: Alert and oriented morbidly obese white female, gravid Monitor category 1 tracing irregular contractions HEENT unremarkable Skin without rashes Lungs clear to auscultation Heart regular sinus rhythm Abdomen obese soft nontender gravid vertex by Jerry's. Estimated weight 7 and three-quarter pounds. Pelvic exam: Deferred at this time per nurse evaluation cervix is 60% / 2 cm/vertex/-2 Extremities grossly intact no significant edema patella DTR 2/4 Neurologic shows normal gait Data : 07/04/19 20:20 07/04/19 20:20 A&P Assessment and plan (1) Term : This lady has been admitted for induction of labor start with cervical ripening with misoprostol anticipate possible use of balloon catheter for cervical ripening with Pitocin augmentation. We will continue to monitor as necessary follow blood pressures other at this time there is no signs of preeclampsia she does have history of an elevated blood pressure in . Interesting her creatinine is elevated at 1.1 no other abnormalities in her laboratory studies. Her protein/creatinine ratio is 0.14. Status: Acute (2) Elevated blood pressure affecting in third trimester, antepartum: Status: Acute (3) Thrombocythemia: Status: Acute (4) Obesity complicating , second trimester: Status: Acute Attestations Medical Necessity Statement*: Patient is admitted at term with history of elevated blood pressure third trimester undergo induction of labor will watch closely for signs symptoms of preeclampsia. Time Spent in Patient Care: 16 - 35 minutes (>than 50% of time spent in counselling and/or direct pt care on unit) . Coding Level of Care Code Acute Ladle Liner Helper for Rabia Galan Medical Decision Making Moderate Complexity Diagnoses Term Z34.90 Elevated blood pressure affecting in third trimester, antepartum O16.3 Thrombocythemia D47.3 Obesity complicating , second trimester O99.212 Time Spent (min) 30 Comment Greater than 50% qwpz-hi-ljcd time spent in counseling i.e. induction of labor delivery potential risk complications.
--- NOTE | 2019-07-05 08:47 | P.PN_ITS ---
VP COMPLIANCE Subjective Subjective: Interval history: Placement of cervical balloon catheter Patient doing well tracing category 1 irregular uterine contractions palpating mild. Labor: Station: -2 Amniotic Membrane Status: Intact Monitor Mode: External Contraction Pattern: Regular Status: Category l Vitals/I&O/Wt Last Vital Signs Temp 98.2 F 07/05/19 04:12 Pulse 85 07/05/19 08:27 Resp 16 07/05/19 04:12 BP 118/63 07/05/19 08:27 Weight last 48 hrs Weight 137.892 kg Physical Exam Narrative: EXAM NARRATIVE: Category 1 tracing uterine contractions mild every 3 to 4 minutes. Cervix 80% / 2 cm/soft/vertex/posterior to mid Estimated weight 7 and three-quarter pounds Pelvis adequate Procedure note: Attempt to place cervical balloon catheter via palpation unsuccessful patient then placed in stirrups dorsolithotomy position Graves speculum used to visualize cervix and balloon catheter placed without difficulty cervical balloon inflated to 80 mL's vaginal to 80 mL's. Will apply intermittent traction to facilitate cervical ripening. Data : 07/04/19 20:20 07/04/19 20:20 A&P Assessment and plan (1) Term : Term undergoing induction mild increase in blood pressure third trimester cervical wound catheter placed for cervical ripening. Continue induction Status: Acute Attestations Medical Necessity Statement*: Induction of labor Procedures Procedure Narrative Cervical balloon catheter placed with the aid of Graves speculum without difficulty. Cervical balloon inflated to 80 mL's vaginal to 80 mL's. Coding Level of Care Code Established Pt Acute [employer] Operations Engineer for Jaydong Fwsergei Patient Type Established Diagnoses Term Z34.90 Time Spent (min) 20
[2019-07-05] MEDS: dextrose 5%-lactated ringers 1,000 ML 125 ML IV ×2 (09:14→17:18)
[2019-07-05] MEDS: oxytocin 30 UNIT/500 ML BAG IV (09:15)
[2019-07-05] MEDS: acetaminophen 325 mg Tablet 650 MG PO (09:20)
--- NOTE | 2019-07-05 17:31 | PM.OBGYPN ---
ASSISTANT SOFTBALL COACH Subjective Subjective: Interval history: ROM AROM clear fluid 1715h balloon out 1345 Pitocin at 18 mU/min Cat 1 tracing UCs q 3 min palpate moderate. Labor: Pain Control: tolerating well Dilation (cm): 6 Effacement (%): 70 Station: -2 Amniotic Membrane Status: Ruptured Monitor Mode: External Contraction Frequency: 3 Contraction Duration: 60 Contraction Pattern: Regular Contraction Intensity: Moderate Status: Category l Vitals/I&O/Wt Last Vital Signs Temp 98.4 F 07/05/19 16:25 Pulse 72 07/05/19 17:17 Resp 18 07/05/19 16:25 BP 138/88 07/05/19 17:17 07/05/19 07/05/19 07/05/19 06:59 14:59 22:59 Intake Total 739.250 / 739.250 520.75 / 1260.000 Balance 739.250 / 739.250 520.75 / 1260.000 Weight last 48 hrs Weight 137.892 kg Data : 07/04/19 20:20 07/04/19 20:20 Attestations Medical Necessity Statement*: labor Coding Level of Care Code Acute Chip Mixing Machine Operator for Chg Adama
--- NOTE | 2019-07-05 17:36 | P.PN_ITS ---
METER READER INSPECTOR Subjective Labor: Dilation (cm): 6 Effacement (%): 70 Station: -2 Amniotic Membrane Status: Ruptured Monitor Mode: External Contraction Frequency: 3 Contraction Pattern: Regular Contraction Intensity: Moderate Status: Category l Vitals/I&O/Wt Last Vital Signs Temp 98.2 F 07/05/19 17:34 Pulse 72 07/05/19 17:17 Resp 16 07/05/19 17:34 BP 138/88 07/05/19 17:17 07/05/19 07/05/19 07/05/19 06:59 14:59 22:59 Intake Total 739.250 / 739.250 520.75 / 1260.000 Balance 739.250 / 739.250 520.75 / 1260.000 Weight last 48 hrs Weight 137.892 kg Data : 07/04/19 20:20 07/04/19 20:20 Attestations Medical Necessity Statement*: labor Coding Level of Care Code Acute Aesthetician for Chg Adama
--- NOTE | 2019-07-05 18:24 | PC.NURSE ---
chux/towel changed
[2019-07-05] MEDS: lactated ringers 1,000 ML 999 ML IV (18:43)
--- NOTE | 2019-07-05 20:12 | P.ANES_ITS ---
Anesthesia Procedures Procedure/Date: 07/05/19 Epidural: Time Out Performed: Yes Consents Signed: Procedure Consent Consent: requested by attending/covering physician and from patient Lumbar Level: L3-L4 Epidural position: sitting Epidural procedure: sterile prep of area (betadine), 1% lidocaine to numb the area (3ml), 18 g needle, neg for pa resthesia, test dose given, 1.5% xylocaine 1:200k epi (5ml), 0.2% Ropivacaine bolus ml (5ml), placed PCEA, no systemic response, sterile dressing applied, L.U.D. no apparent complications and 0.2% Ropiavacaine @ mls/hr (13ml/hr) Additional Comments: Pt seen in preop clinic with consent noted and no questions or medical changes. Pt resting comfortable after epidural placement
--- NOTE | 2019-07-05 20:17 | P.ANESUD_ITS ---
Pre-Anesthetic Update Pre-Anesthetic Assessment: Date of Surgery/Procedure: 07/05/19 Preop [place] gnosis: labor Proposed Procedure: epidural Any changes to Pre-Anesthetic Assessment?: No Last Intake: 07:00 Labs Last 48hrs: Laboratory Results - last 48 hr 07/04/19 07/04/19 07/04/19 19:20 20:20 20:20 WBC 15.4 H RBC 3.70 L Hgb 10.3 L Hct 31.3 L MCV 84.6 MCH 27.8 L MCHC 32.9 RDW 13.6 Plt Count 411 H MPV 10.3 Neut % (Auto) 67.1 Lymph % (Auto) 23.1 Wilkinson % (Auto) 6.1 Eos % (Auto) 1.5 Baso % (Auto) 0.4 Neut # (Auto) 10.3 H Lymph # (Auto) 3.6 Wilkinson # (Auto) 0.9 Eos # (Auto) 0.2 Baso # (Auto) 0.1 Nucleated RBC % (a uto) 0 Nucleated RBCs # 0.0 Sodium Potassium Chloride Carbon Dioxide Anion Gap BUN Creatinine GFR Calculation Glucose Calculated Osmolal ity Uric Acid Calcium Total Bilirubin AST ALT Alkaline Phosphata se Total Protein Albumin Globulin Urine Color Red Urine Appearance Turbid Urine pH 7 Ur Specific Gravit y 1.010 Urine Protein 1+ H Urine Glucose (UA) Norm Urine Ketones 1+ H Urine Blood 3+ H Urine Nitrate Negative Urine Bilirubin Neg Urine Urobilinogen Norm Ur Leukocyte Sil ase Negative Urine RBC Too numerous to c nt H Urine WBC 0-4 H Ur Squamous Epith Cells 0-4 H Urine Bacteria 2+ H U Random Total Pro tein 24 Urine Creatinine 168 Protein/Creatinin Ratio 0.14 Blood Type Rho(D) Type Antibody Screen 07/04/19 07/04/19 20:20 20:20 WBC RBC Hgb Hct MCV MCH MCHC RDW Plt Count MPV Neut % (Auto) Lymph % (Auto) Wilkinson % (Auto) Eos % (Auto) Baso % (Auto) Neut # (Auto) Lymph # (Auto) Wilkinson # (Auto) Eos # (Auto) Baso # (Auto) Nucleated RBC % (a uto) Nucleated RBCs # Sodium 135 L Potassium 3.9 Chloride 102 Carbon Dioxide 19 L Anion Gap 17.9 BUN 14 Creatinine 1.1 H GFR Calculation 61.0 L Glucose 107 Calculated Osmolal ity 277 L Uric Acid 6.0 H Calcium 10.1 Total Bilirubin 0.2 AST 17 ALT 14 Alkaline Phosphata se 149 H Total Protein 6.3 L Albumin 3.4 L Globulin 2.9 Urine Color Urine Appearance Urine pH Ur Specific Gravit y Urine Protein Urine Glucose (UA) Urine Ketones Urine Blood Urine Nitrate Urine Bilirubin Urine Urobilinogen Ur Leukocyte Sil ase Urine RBC Urine WBC Ur Squamous Epith Cells Urine Bacteria U Random Total Pro tein Urine Creatinine Protein/Creatinin Ratio Blood Type O Positive Rho(D) Type Positive Antibody Screen Negative Vitals: Temperature 98.2 F 07/05/19 17:34 Temperature Source Oral 07/05/19 17:34 Pulse Rate 87 07/05/19 20:10 Pulse Rhythm 07/04/19 20:02 Respiratory Rate 16 07/05/19 17:34 Respiratory Effort Non-Labored 07/04/19 20:02 Respiratory Depth Normal 07/04/19 20:02 Respiratory Patter n 07/04/19 20:02 Blood Pressure 141/77 07/05/19 20:10 Blood Pressure Trisha n 98 07/05/19 20:10 Pulse Oximetry 100 07/05/19 20:15 Oxygen Delivery Me thod 07/04/19 20:44 Cardiac Studies: No Data to Display
[2019-07-05] MEDS: lactated ringers 1,000 ML 125 ML IV (20:44)
[2019-07-05] MEDS: oxytocin 30 UNIT/500 ML BAG 600 UNIT IV (21:47)
--- NOTE | 2019-07-05 21:51 | PM.DELIVERY ---
 Delivery Note: Date of delivery: July 05, 2019 Pre-Delivery Course: Antepartum course was unremarkable patient did have 1 elevated blood pressure early term. Laboratory evaluation unremarkable no other elevated blood pressures Delivery: Patient was admitted to labor and delivery in the evening of 04 July 2019 at 39+6 weeks for induction of labor. At that time cervix was described to 60% 2 cm. She had a reassuring category 1 tracing. Underwent Cytotec 0.25 mcg every 4 hours x3. In the a.m. of 07/05/2019 cervical balloon catheter was placed she was started on low-dose Pitocin. She progressed through the latent phase of labor very nicely once again with reassuring category 1 tracing normal blood pressures. There approximately 1515 hrs. on 04 July she was 6 cm underwent amniotomy clear fluid DGN progressed very nicely through the active phase of labor did require an epidural. Once again tracing stage category 1 and she was on Pitocin augmentation. She progressed nicely to complete and +3 station and had a very short second stage of labor consisting of 2 pushes. Delivery was productive of a viable male delivered occiput anterior in a controlled fashion. Loose nuchal cord x1. Apgars were 8 and 9. Baby weighed 7 pounds 8 ounces. After with controlled delivery infant was laid on mom's abdomen delayed cord clamping was performed mom was given IV Pitocin with delivery of the infant. Had good uterine contractility placenta delivered spontaneously complete three-vessel inspection of vagina cervix showed no laceration there was a second-degree perineal laceration that was repaired in a very small right labial lesion that was repaired all repairs with 3-0 Vicryl. There was good results at the end of the repair. Baby was left in room with mother and father for bonding. No complications. Anticipate discharge home day 1 versus a.m. day 2 Post-Delivery Status: Mother and baby are in good condition. Baby in room with parents for bonding. A&P Assessment and plan (1) Term : Status: Acute (2) Nuchal cord without compression, delivered, current hospitalization: Status: Acute (3) Elevated blood pressure affecting in third trimester, antepartum: Status: Acute (4) Thrombocythemia: Status: Acute (5) Anemia complicating , second trimester: Status: Acute (6) Maternal obesity affecting , antepartum: Status: Acute Coding Level of Care Code Acute Environmental Scientist for Chg Fwd Medical Decision Making Moderate Complexity Diagnoses Term Z34.90 Nuchal cord without compression, delivered, current hospitalization O69.81X0 Elevated blood pressure affecting in third trimester, antepartum O16.3 Thrombocythemia D47.3 Anemia complicating , second trimester O99.012 Maternal obesity affecting , antepartum O99.210 Time Spent (min) 30
[2019-07-06] VITALS (11 sets, daily range): BP systolic 106–137; BP diastolic 68–82; PULSE 75–92; RESP 14–16; TEMP 36.3–37; O2SAT 95–98
[2019-07-06] MEDS: acetaminophen 325 mg Tablet 650 MG PO (00:53)
[2019-07-06] MEDS: benzocaine-menthol 78 gm Canister 1 SPRAY TOPICAL (01:28)
[2019-07-06] MEDS: lanolin oint 7 gm 1 APPLIC TOPICAL (01:29)
[2019-07-06 06:43] LABS: Alanine Aminotransferase 11 U/L (0-33); Albumin Level 3.1 g/dL (3.5-5.2); Alkaline Phosphatase 130 IU/L (35-105); Anion Gap 15.9 (5-19); Aspartate Amino Transferase 17 U/L (0-32); Blood Urea Nitrogen 8 mg/dL (6-20); Calcium 9.5 mg/dL (8.5-10.5); Carbon Dioxide 20 mmol/L (22-29); Chloride 105 mmol/L (98-107); Globulin 2.5 g/dL (1.3-4.6); Glomerular Filtration Rate 122.8 mL/min (90-130); Glucose 86 mg/dL (65-115); Osmolality Calculated 279 mOsm/kg (285-295); Potassium 3.9 mmol/L (3.5-5.1); Sodium 137 mmol/L (136-145); Total Bilirubin 0.3 mg/dL (0.15-1.2); Total Protein 5.6 g/dL (6.6-8.7)
--- NOTE | 2019-07-06 09:04 | P.PN_ITS ---
TRANSITIONAL CARE MANAGER Subjective Subjective: Interval history: day 1 Patient is now approximate 12 hours status post vaginal delivery doing well states baby is doing well. Has no issues this morning some mild perineal tenderness no fevers no chills no headaches visual changes right upper quadrant midepigastric pain. She is up and ambulatory CMP this morning is unremarkable creatinine is now 0.6. Did discuss with patient and spouse about discharge and going home this evening however due to travel considerations concerned about back road travel after dark they would rather be discharged tomorrow baby will not be 24 hours until 930 this evening therefore baby cannot be discharged before then. Labor: Dilation (cm): 6 Effacement (%): 70 Station: +2 Amniotic Membrane Status: Ruptured Monitor Mode: Palpation Contraction Frequency: 3 Contraction Pattern: Regular Contraction Intensity: Moderate Status: Category l Post /CS: Patient comments OB post-: no complaints, pain well controlled, tolerating diet and flatus present baby status: doing well and nursing well feeding status: exclusively breast feeding Vitals/I&O/Wt Last Vital Signs Temp 98.0 F 07/06/19 07:43 Pulse 86 07/06/19 07:43 Resp 16 07/06/19 07:43 BP 111/72 07/06/19 07:43 Pulse Ox 96 07/06/19 07:43 07/05/19 07/06/19 07/06/19 22:59 06:59 14:59 Intake Total 2437.900 / 3177.150 1007.867 / 4185.017 Output Total 200 / 200 1050 / 1250 Balance 2237.900 / 2977.150 -42.133 / 2935.017 Weight last 48 hrs Weight 137.892 kg Physical Exam Narrative: EXAM NARRATIVE: Alert and oriented no acute distress laying in bed HEENT grossly normal Abdomen is soft nontender U- 2 firm uterus is nontender. Extremities intact no calf tenderness mild edema Neurologic patellar DTR 2/4 no clonus Urinary Catheter Management^: Khanna: Cath Placed During This Visit: yes, but has since been removed by the nurse Reason for Continuing Indwelling Catheter: Other Urinary Catheter Date of Insertion: 07/05/19 Urinary Catheter Time of Insertion: 20:15 Date Urinary Catheter Removed: 07/05/19 Time Urinary Catheter Discontinued: 21:18 Data : 07/04/19 20:20 07/06/19 06:06 Micro: Microbiology 07/04/19 20:20 Urine Culture - Preliminary Urine,Clean Catch A&P Assessment and plan (1) Normal vaginal delivery: Patient is doing well this morning 12 hours we will go ahead and advance care today to stay discharge home in a.m. day 2. Plan follow-up in the office in 1 week for blood pressure check. Status: Acute Attestations Medical Necessity Statement*: Post vaginal delivery less than 24 hours Time Spent in Patient Care: less than 15 minutes Greater than 50% [id number] time spent counseling patient on care and plan for discharge in a.m. Coding Level of Care Code Acute Math Instructor for Rabia Fwd Diagnoses Normal vaginal delivery O80 Time Spent (min) 15
[2019-07-06] MEDS: ferrous sulfate EC 325 mg Tablet PO (10:30)
[2019-07-06] MEDS: prenatal vitamin Capsule 1 CAP PO (10:30)
[2019-07-06] MEDS: docusate sodium 100 mg Capsule PO ×2 (10:31→18:43)
[2019-07-06 10:32] LABS: Hemoglobin 9.9 g/dL (11.5-15.3); Mean Corpuscular HGB Conc 31.9 g/dL (30.0-36.0); Mean Corpuscular Volume 84.7 fL (81-99); Mean Platelet Volume 10.6 fL (7.4-10.4); Platelet Count 384 10^3/cmm (130-400); Red Blood Count 3.66 10^6/uL (4.1-5.3); Red Cell Distribution Width 13.8 % (12.1-15.1)
[2019-07-06] MEDS: sennosides 8.6 mg Tablet 17.2 MG PO (21:50)
[2019-07-07 04:00] VITALS: BP 108/71; PULSE 82; RESP 16; TEMP 36.8
[2019-07-07] MEDS: docusate sodium 100 mg Capsule PO (08:47)
[2019-07-07] MEDS: prenatal vitamin Capsule 1 CAP PO (08:47)
[2019-07-07] MEDS: ferrous sulfate EC 325 mg Tablet PO (08:47)
--- NOTE | 2019-07-07 09:59 | P.DS_ITS ---
Discharge Providers ENVIRONMENTAL SERVICES AIDE Date of Admission: 07/04/19 19:11 Date of Discharge: 07/07/19 Attending Provider at Admission: Macario Shelby DO Attending Provider at Discharge: Macario Shelby DO Consults: Dr Vidales Primary Care Provider: CASTILLO Christie Diagnoses at Discharge Discharge Diagnosis (1) Normal vaginal delivery: Status: Acute (2) Maternal obesity affecting , antepartum: Status: Acute (3) Nuchal cord without compression, delivered, current hospitalization: Status: Acute (4) Elevated blood pressure affecting in third trimester, antepartum: Status: Acute (5) Term : Status: Acute (6) Thrombocythemia: Status: Acute Reason for Visit Reason for Visit: Reason For Visit: induction Brief History: Discharge day 2 Hospital Course Hospital Course: Patient was admitted for induction of labor at 39+6 weeks. Had had 1 isolated blood pressure elevation in late third trimester. Time of admission blood pressures were normal all labs were normal except creatinine 1.1 which was elevated from previous creatinine 0.6. No signs and symptoms of preeclampsia. Patient underwent nasal Prostko cervical ripening x3 this was then followed by placement of cervical balloon catheter and low-dose Pitocin induction. Patient progressed nicely through first stage of labor with a reassuring category 1 tracing. Balloon catheter came out at that time she was approximately 6 cm dilated amniotomy showed clear fluid. Continued with induction she did undergo labor epidural. She progressed very nicely through th e active stage of labor quickly becoming complete complete +3 once again category 1 tracing throughout had spontaneous vaginal delivery of a viable male 7 pounds 8 ounces Apgars 8/9. patient did extremely well blood pressures remain normal creatinine went down to 0.6 day 1 she was discharged home in a.m. day 2 normal care plan follow- up by 2 weeks via telehealth if possible. Discharge Summary: See above Time of discharge patient is up and about she has no complaints no fevers no chills normal voiding normal bowel movements no calf tenderness no headaches nausea vomiting right upper quadrant pain no visual changes. Information Peripartum Data: Delivery Method: Vaginal (7 pound 6 ounce male Apgars 8 9 second-degree perineal laceration repaired. No complications) Physical Exam Narrative: EXAM NARRATIVE: Alert and oriented no acute distress lady ambulatory. HEENT grossly normal Abdomen is soft uterus U- 2 firm nontender Pelvic exam not performed Extremities mild edema no calf tenderness Neurologic shows normal gait Urinary Catheter Management^: Khanna: Cath Placed During This Visit: yes, but has since been removed by the nurse Reason for Continuing Indwelling Catheter: Other Urinary Catheter Date of Insertion: 07/05/19 Urinary Catheter Time of Insertion: 20:15 Date Urinary Catheter Removed: 07/05/19 Time Urinary Catheter Discontinued: 21:18 Discharge Data Data Completed and Pending: Labs from last 24 hours 07/06/19 09:45 WBC 16.0 H RBC 3.66 L Hgb 9.9 L Hct 31.0 L MCV 84.7 MCH 27.0 L MCHC 31.9 RDW 13.8 Plt Count 384 MPV 10.6 H Vitals: Last Vital Signs Temp 98.2 F 07/07/19 04:00 Pulse 82 07/07/19 04:00 Resp 16 07/07/19 04:00 BP 108/71 07/07/19 04:00 Pulse Ox 98 07/06/19 15:36 Discharge Plan Discharge Patient Disposition: Home, Self-Care Condition: Stable Prescriptions: New acetaminophen 325 mg Tablet 650 mg PO Q6H PRN (Reason: Mild pain or temp > 100.4) 30 Days Qty: 60 RF: 0 ibuprofen 800 mg Tablet 800 mg PO TID 30 Days Qty: 90 RF: 1 docusate sodium 100 mg Capsule 100 mg PO BID 60 Days Qty: 120 RF: 1 Continued prenat.vits,tr,[id number] Tablet 1 tab PO ONCE RF: 0 ferrous sulfate 325 mg (65 mg iron) tablet 650 mg PO DAILY RF: 0 Discharge Orders: Discharge Order (Routine); Ordered 07/07/19 Ordered By: Macario Shelby Referrals: Macario Shelby DO [Physician] - 2 weeks (may be by telehealth) Discharge Diet: Regular Discharge Activity: Increase activity as tolerated Patient Instructions: Vitamins (By mouth), Vaginal Delivery (DC), OB Discharge Report, OB Food/Drug Interaction Guide, OB Home Care Instructions, OB Care at Home, OB Home Care, OB Proud Parent Packet, OB Vaginal Deliveries Discharge Attestations ENVIRONMENTAL SERVICES AIDE Time Spent in Discharge Care*: less than 30 min Specific Discharge Activities: Specific discharge activities: educating patient, documenting/other paperwork and evaluating patient/reviewing data Other discharge activites (optional): Patient counseled for post care and activity as well as plan follow-up in 2 and 6 weeks. Discussed contraception at this time patient anticipates using subdermal hormonal contraception. Status at Discharge: Cognitive status at discharge: cognitively intact , Behavioral status at discharge: cooperative , Functional status at discharge: independent ambulation Coding Level of Care Code Acute Rehabilitation Construction Specialist for Rabia Galan History Problem Focused Exam Problem Focused Medical Decision Making Straight Forward Diagnoses Normal vaginal delivery O80 Maternal obesity affecting , antepartum O99.210 Nuchal cord without compression, delivered, current hospitalization O69.81X0 Elevated blood pressure affecting in third trimester, antepartum O16.3 Term Z34.90 Thrombocythemia D47.3 Comment Greater than 50% of [id number] encounter spent with counseling care follow-up and contraception
[2019-07-07 11:00] VITALS: BP 112/71; PULSE 82; RESP 18; TEMP 36.7
== END 2019-07-07 11:00 | disposition home or self-care (01) | DRG 806 ==
PROVIDERS: Admitting Provider Obstetrics & Gynecology Female Pelvic Medicine and Reconstructive Surgery; PCP Nurse Practitioner; Visit Provider Obstetrics & Gynecology Female Pelvic Medicine and Reconstructive Surgery
DX: O99.214 Obesity complicating childbirth (principal); O99.12 Other diseases of the blood and blood-forming organs and certain disorders involving the immune mechanism complicating childbirth; Z37.0 Single live birth; Z3A.39 39 weeks gestation of pregnancy; D69.6 Thrombocytopenia, unspecified; O69.81X0 Labor and delivery complicated by cord around neck, without compression, not applicable or unspecified; O70.1 Second degree perineal laceration during delivery; O99.02 Anemia complicating childbirth; D64.9 Anemia, unspecified
CPT/HCPCS: 12345; 36415; 51702; 59409; 80053; 81001; 82570; 84156; 84550; 85025; 85027; 86850; 86900; 87086; J2795

== ENCOUNTER → 2019-08-13 11:39 | Outpatient (BNVA) | payer OTHER, SELFPAY | PROVIDERS: PCP Nurse Practitioner; Visit Provider Obstetrics & Gynecology | DX: D47.3 Essential (hemorrhagic) thrombocythemia (principal); J45.20 Mild intermittent asthma, uncomplicated; Z39.2 Encounter for routine postpartum follow-up | CPT/HCPCS: 85025 ==

== ENCOUNTER 2019-09-17 12:27 | Outpatient (CLI) | payer OTHER, SELFPAY ==
[2019-09-17 13:18] LABS: Basophils # 0.1 10^3/uL (0.0-0.1); Basophils % 0.8 %; Eosinophils # 0.3 10^3/uL (0.0-0.8); Eosinophils % 3.5 %; Hematocrit 38.5 % (37.0-47.0); Hemoglobin 12.2 g/dL (11.5-15.3); Lymphocytes # 3.6 10^3/uL (0.8-4.8); Lymphocytes % 40.8 %; Mean Corpuscular HGB Conc 31.7 g/dL (30.0-36.0); Mean Corpuscular Hemoglobin 26.2 pg (28.0-34.0); Mean Corpuscular Volume 82.8 fL (81-99); Mean Platelet Volume 9.6 fL (7.4-10.4); Monocytes # 0.8 10^3/uL (0.2-0.9); Neutrophils # 4.1 10^3/uL (1.8-7.7); Neutrophils % 45.7 %; Nucleated Red Blood Cells % 0 %; Platelet Count 478 10^3/cmm (130-400); Red Blood Count 4.65 10^6/uL (4.1-5.3); Red Cell Distribution Width 12.2 % (12.1-15.1); White Blood Count 8.9 10^3/uL (4.0-10.0)
[2019-09-17 15:10] LABS: Ferritin 52 ng/mL (15-150); Iron 37 ug/dL (37-145); Percent Saturation 12.4 % (20-50); Total Iron Binding Capacity 298 mcg/dl; Unsaturated Iron Binding 261 ug/dL (112-347)
[2019-09-17 15:22] LABS: Folate Level 7.5 ng/mL (4.8-37.3)
[2019-09-17 15:26] LABS: Vitamin B12 353 pg/mL (232-1245)
[2019-09-17 15:57] LABS: Erythrocyte Sedimentation Rate 17 mm/hr (0-15)
[2019-09-17 16:26] LABS: LAB Peripheral Smear Sent for Review
--- NOTE | 2019-09-17 16:53 | ONC CON_ITS ---
Dr. Negrete New Patient Note Patient: Candace Velásquez Unit #: [id number]: [id number] Dicatated By: Moise Negrete M.D.Date of Visit: Sep 17, 2019 Onc MED New Patient/Consult Referring Physician: Brooklyn Means A.P.N. History of Present Illness: Ms. Candace Velásquez, is a 23-year-old female with 7-year history of off and on mild thrombocytosis and also off and on iron deficiency anemia was treated with off and on iron supplements and the last time she took it in July 2019. But recently start developing intolerance to oral iron so she was somewhat noncompliant. Her follow-up labs done recently on August 13, 2019 showed white blood count 10.9 hemoglobin 12.9 hematocrit 40.1 platelets 493,000 with a normal differential repeat labs on August 20, 2019 showed white blood count 12 hemoglobin 12.7 hematocrit 39.4 and platelets 468,000 Her last menstrual period was in September 2019 when she got first time and this year after delivery, she is on control pills. Patient has history of fibromyalgia, denies any family history of thrombocytosis or blood disorder. Denies any history of chronic infections. Patient denies any history of melena or hematochezia, or hemoptysis or hematemesis or indigestion. Denies any history of hematuria, no weight loss or recurrent fever but night sweating since last month. Denies any peripheral lymphadenopathy. Denies any abdominal fullness. Denies any petechia or ecchymosis or nosebleed or gum bleed. Past Medical History: Ms. Velásquez's medical history consists of asthma, depression, fibromyalgia, hyperlipidemia, Meniere's disease, and post traumatic stress disorder. Past Surgical History: Ms. Velásquez's surgical/procedural history consists of excision of benign cyst from back and tonsillectomy in 2011. Medications: Progesterone 1 Tablet Oral daily Allergies: Bactrim and Lyrica. Social History: Ms. Velásquez is and she is an unknown. Ms. Velásquez quit smoking 6 years ago but had smoked for 4 years. She has no history of drinking. Ms. Velásquez reports the following support systems: lives with spouse, significant other, family, or friends, lives in own house, supportive family/friends willing to assist with needs, and adequate transportation available for expected visits. Her diet consists of regular meals. She indicates her activity level as: regular exercise. Family History: Ms. Velásquez's mother is alive. Ms. Velásquez's father is alive. Ms. Velásquez's maternal grandmother is : oral cancer. Her paternal grandmother is alive: skin cancer. Review Of Symptoms: Constitutional - Appetite is good and weight is stable. No fever or hot flashes. Energy level is [id number]. Positive for night sweats, ENMT - Positive for sinus congestion/drainage. No mouth sores. No sore throat or difficulty swallowing, Hematologic/Lymphatic - Positive for easy bruising, Respiratory - No shortness of breath. Positive for cough. No pleuritic pain or hemoptysis, Cardiovascular - No angina pain. No palpitations, Gastrointestinal - Positive for nausea, no vomiting. No heartburn or acid reflux. No diarrhea. Positive for constipation. No blood in the stool or black stools, Genitourinary (F) - No dysuria or hematuria. No urinary frequency. No urgency. Positive for incontinence, Musculoskeletal - Positive for joint pain, Neurologic - No headache or dizziness. No numbness or tingling. No other focal neurologic symptoms, Psychiatric - Positive for anxiety. Vital Signs: Performed on Sep 17, 2019 13:41: 0, 39.66 (HIGH), 2.40 sq.m, 70.00 in, 97 %, 71 /min, 20 /min, 115/74 mm(hg), 98.0 F (LOW), and 276.4 lbs (HIGH). Performance Status: 0 - Fully active, able to carry on all predisease activities without restrictions. (ECOG) Physical Examination: ENMT - No mouth sores, no thrush, no jaundice, Respiratory - Lungs are clear, Cardiovascular - Regular rate and rhythm of heart, Abdomen - , Soft, bowel sounds present, nontender, Extremities - No visible edema, or rash, No peripheral lymphadenopathy. Lab/Imaging: Most recent lab results are not available for this patient. Impression: Mild isolated thrombocytosis, etiology could be multifactorial including iron deficiency, chronic blood loss e.g. history of heavy menses. Chronic inflammation/connective tissue disorder. B12 folate deficiency, or myeloproliferative disorder like CML or essential thrombocytosis but less likely History of heavy menses Off and on history of iron deficiency anemia, treated successfully with oral iron supplement on multiple occasions. History of fibromyalgia. Plan: Discussed with patient regarding her labs white blood count 8.9 hemoglobin 12.2 hematocrit 38.5 MCV 82.8 platelets 478,000 and with a normal differential Clinically, patient is doing well with no new signs symptoms and her follow-up labs done today showed resolution of mild leukocytosis seen on previous labs done in [facility] office but persistent mild isolated thrombocytosis, most likely due to iron deficiency or chronic inflammation/connective tissue disorder. Myeloproliferative disorder could be the possibility but less likely At this point we will proceed with iron studies, peripheral blood smear, LACEY/sed rate, B12 folic acid level and after reviewing that, if it shows deficiency may consider supplements. Or plan otherwise Patient return to clinic in 1 week with CBC Signed By: Moise Negrete M.D. <<Signature on File>>
[2019-09-19 14:41] LABS: Anti-Nuclear Antibody Screen NEGATIVE (NEGATIVE)
== END 2019-09-17 12:28 | disposition home or self-care (01) ==
LOC: ONCMED 12:33
PROVIDERS: PCP Nurse Practitioner; Visit Provider Internal Medicine Hematology & Oncology
DX: D47.3 Essential (hemorrhagic) thrombocythemia (principal); D50.9 Iron deficiency anemia, unspecified; M79.7 Fibromyalgia; Z87.42 Personal history of other diseases of the female genital tract; Z87.891 Personal history of nicotine dependence
CPT/HCPCS: 80500; 82607; 82728; 82746; 83540; 83550; 85025; 85651; 86038; 99203

== ENCOUNTER 2019-09-24 09:45 | Outpatient (CLI) | payer OTHER, SELFPAY ==
[2019-09-24 10:27] LABS: Basophils # 0.1 10^3/uL (0.0-0.1); Basophils % 0.8 %; Eosinophils # 0.3 10^3/uL (0.0-0.8); Eosinophils % 2.8 %; Hematocrit 40.3 % (37.0-47.0); Hemoglobin 12.7 g/dL (11.5-15.3); Lymphocytes # 3.4 10^3/uL (0.8-4.8); Lymphocytes % 37.4 %; Mean Corpuscular HGB Conc 31.5 g/dL (30.0-36.0); Mean Corpuscular Hemoglobin 25.6 pg (28.0-34.0); Mean Corpuscular Volume 81.3 fL (81-99); Mean Platelet Volume 9.6 fL (7.4-10.4); Monocytes # 0.7 10^3/uL (0.2-0.9); Monocytes % 7.9 %; Neutrophils # 4.6 10^3/uL (1.8-7.7); Neutrophils % 50.8 %; Nucleated Red Blood Cells % 0 %; Platelet Count 490 10^3/cmm (130-400); Red Blood Count 4.96 10^6/uL (4.1-5.3); Red Cell Distribution Width 12.1 % (12.1-15.1); White Blood Count 9.1 10^3/uL (4.0-10.0)
--- NOTE | 2019-09-24 11:19 | ONC FU_ITS ---
Dr. Negrete follow up note Patient: Candace Velásquez Unit #: [id number]: [id number] Dicatated By: Moise Negrete M.D.Date of Visit:Sep 24, 2019 Onc Med Follow-up/Prog Note History of Present Illness: Ms. Candace Velásquez, is a 23-year-old female with 7-year history of off and on mild thrombocytosis and also off and on iron deficiency anemia was treated with off and on iron supplements and the last time she took it in July 2019. But recently start developing intolerance to oral iron so she was somewhat noncompliant. Her follow-up labs done recently on August 13, 2019 showed white blood count 10.9 hemoglobin 12.9 hematocrit 40.1 platelets 493,000 with a normal differential repeat labs on August 20, 2019 showed white blood count 12 hemoglobin 12.7 hematocrit 39.4 and platelets 468,000 Her last menstrual period was in September 2019 when she got first time and this year after delivery, she is on control pills. Patient has history of fibromyalgia, denies any family history of thrombocytosis or blood disorder. Denies any history of chronic infections. Patient denies any history of melena or hematochezia, or hemoptysis or hematemesis or indigestion. Denies any history of hematuria, no weight loss or recurrent fever but night sweating since last month. Denies any peripheral lymphadenopathy. Denies any abdominal fullness. Denies any petechia or ecchymosis or nosebleed or gum bleed. Came for follow-up, denies any specific complaints, no fever or chills, no nausea or vomiting, no diarrhea constipation, no abdominal fullness. No melena hematochezia. Medications: Progesterone 1 Tablet Oral daily Allergies: Bactrim and Lyrica. Review of Systems: Constitutional - Appetite is good and weight is stable. No fever or hot flashes. Energy level is [id number]. Positive for night sweats, ENMT - Positive for sinus congestion/drainage. No mouth sores. No sore throat or difficulty swallowing, Hematologic/Lymphatic - Positive for easy bruising, Respiratory - No shortness of breath. Positive for cough. No pleuritic pain or hemoptysis, Cardiovascular - No angina pain. No palpitations, Gastrointestinal - Positive for nausea, no vomiting. No heartburn or acid reflux. No diarrhea. Positive for constipation. No blood in the stool or black stools, Genitourinary (F) - No dysuria or hematuria. No urinary frequency. No urgency. Positive for incontinence, Musculoskeletal - Positive for joint pain, Neurologic - No headache or dizziness. No numbness or tingling. No other focal neurologic symptoms, Psychiatric - Positive for anxiety. Vital Signs: Performed on Sep 24, 2019 10:38 Height - 70.00 in Weight - 274.2 lbs (LOW) BSA - 2.39 sq.m BMI - 39.34 (HIGH) Temperature - 98.4 F Pulse - 72 /min Respiration - 20 /min BP - 113/70 mm(hg) O2 Sat - 99 % Pain - 0 Performance Status: 0 - Fully active, able to carry on all predisease activities without restrictions. (ECOG) Physical Examination: ENMT - No mouth sores, no thrush, no jaundice, Respiratory - Lungs are clear, Cardiovascular - Regular rate and rhythm of heart, Abdomen - Soft, bowel sounds present, Extremities - No visible edema or rash no peripheral lymphadenopathy. Lab/Imaging: Test performed on Sep 17, 2019 12:41 Ferritin 52 ng/mL Iron 37 mcg/dL Vitamin B12 353 pg/mL Iron Binding Capacity (TIBC) 298 mcg/dl % Iron Saturation 12.4 % UIBC 261 mcg/dL ESR (Sed Rate) 17 mm/hr WBC 8.9 10 3/uL RBC 4.65 10 6/uL HGB 12.2 g/dL HCT 38.5 % MCV 82.8 fL MCH 26.2 pg MCHC 31.7 g/dL RDW 12.2 % Platelet Count 478 10 3/cmm MPV 9.6 fL Neutrophils 4.1 10 3/uL Lymphocytes 3.6 10 3/uL Monocytes 0.8 10 3/uL Eosinophils 0.3 10 3/uL Basophils 0.1 10 3/uL Neutrophil % 45.7 % Lymphocyte % 40.8 % Monocyte % 9.0 % Eosinophil % 3.5 % Basophils % 0.8 % NRBC % 0 % LACEY NEGATIVE LACEY IFA is a first line screen for detecting the presence of up to approximately 150 autoantibodies in various autoimmune diseases. A negative LACEY IFA result suggests an LACEY-associated autoimmune disease is not present at this time, but is not definitive. If there is high clinical suspicion for Sjogren's syndrome, testing for anti-SS-A/Ro antibody should be considered. Anti-Sharee-1 antibody should be considered for clinically suspected inflammatory myopathies. AC-0: Negative International Consensus on LACEY Patterns (https://doi.org/10.1515/zyxf-3082-5796) For additional information, please refer to http://education.InhibOx.Taptica/faq/LPA880 (This link is being provided for informational/ educational purposes only.) THIS TEST WAS PERFORMED AT: [facility] [address] [place] [address] KEITH SERVIN DO,MPH Impression: Mild isolated thrombocytosis, etiology could be multifactorial including iron deficiency, chronic blood loss e.g. history of heavy menses. Chronic inflammation/connective tissue disorder. B12 folate deficiency, or myeloproliferative disorder like CML or essential thrombocytosis but less likely History of heavy menses Off and on history of iron deficiency anemia, treated successfully with oral iron supplement on multiple occasions. History of fibromyalgia. Plan: Discussed with patient regarding her labs white blood count 9.1 hemoglobin discussed with patient regarding her labs white blood count 9.1 hemoglobin 12.7 crit 40.3 platelets 490,000 iron studies shows iron saturation 12.4 which is low and iron 37, low. Ferritin 52, B12 353, sed rate 17, LACEY negative and peripheral blood smear shows mild thrombocytosis with a normal platelet morphology. No other abnormality seen. Clinically, patient is doing well with no new signs symptom. Her follow-up lab work-up showed evidence of iron deficiency. And mildly elevated sed rate. At this point we will try iron supplements, though patient has history of intolerance to oral iron but she would like to try for 1 month and in that case we will repeat her CBC and iron studies in a month. If she could not tolerate oral iron, in that case we may try parenteral iron Signed By: Moise Negrete M.D. <<Signature on File>>
== END 2019-09-24 09:46 | disposition home or self-care (01) ==
LOC: ONCMED 09:48
PROVIDERS: PCP Nurse Practitioner; Visit Provider Internal Medicine Hematology & Oncology
DX: D47.3 Essential (hemorrhagic) thrombocythemia (principal); E61.1 Iron deficiency; M79.7 Fibromyalgia; R70.0 Elevated erythrocyte sedimentation rate; Z87.42 Personal history of other diseases of the female genital tract
CPT/HCPCS: 85025; G0463

== ENCOUNTER 2019-09-28 12:01 | Emergency (ER) | payer OTHER, SELFPAY ==
[2019-09-28 12:12] VITALS: BP 115/81; PULSE 103; RESP 14; TEMP 36.6; O2SAT 97; BMI 37.3
[2019-09-28 12:20] VITALS: BP 112/68; PULSE 96; RESP 18; TEMP 37; O2SAT 95
--- NOTE | 2019-09-28 12:21 | US_ITS ---
WS: [id number] Complete ABDOMINAL ULTRASOUND HISTORY: Abdominal Pain COMPARISON: None available. Liver: 16.2 cm in length. Liver is normal size and echogenicity with no mass or intrahepatic dilatati on. Gallbladder: Normally distended with no gallstones, wall thickening or pericholecystic fluid. Gallbladder wall thickness: 0.2 cm. Pancreas: Normal size and echogenicity. CBD: 0.4 cm. Right kidney: 10.9 cm x 5.5 cm x 4.1 cm. No mass, cortical thickening or hydronephrosis. Left kidney: 11.6 cm x 6.4 cm x 5.0 cm. No mass, cortical thickening or hydronephrosis. Spleen: Normal size and echogenicity. Abdominal aorta and IVC are within normal limits. No ascites. US/US abdomen complete* [id number] IMPRESSION: Normal complete abdomen ultrasound.
--- NOTE | 2019-09-28 12:23 | W.ED.ABDPA2 ---
HPI - Abdominal Pain General: Chief Complaint: Abdominal Pain Stated Complaint: upper abd pain Time Seen by Provider: 09/28/19 12:16 Source: patient Mode of arrival: ambulatory Limitations: no limitations History of Present Illness: HPI narrative: Candace is a nice 23-year-old female comes in with a 2-day history of intermittent periumbilical abdominal pain. Patient states she has had about 5 cases of pain yesterday and today. The pain lasts just a few minutes and is only described as pain . Pain radiates out to the sides. She has been constipated which is normal for her and has had 2 episodes of vomiting and is nauseated. She denies any fevers or chills. She denies any urinary symptoms such as dysuria, hematuria, urinary frequency or urgency. She is unaware of any aggravating or alleviating factors. There is nothing she does that elicits the pain and it is sporadic in nature. Associated Symptoms: Reports nausea and vomiting; Denies chills, coffee ground emesis, constipation, GI cramping, diarrhea, dysuria, fever(s), heartburn, hematochezia, hematuria, hematemesis, melena and syncope Review of Systems Const: Denies: fever(s), chills, body aches, fatigue, malaise or diaphoresis Eyes: Denies: change in vision, blurry vision, blind spots, photophobia, eye discharge or eye redness ENMT: Denies: throat pain, odynophagia, hoarseness, swelling of lips/tongue, oral sores, ear or mastoid pain, ear discharge, change in hearing or nasal discharge Card: Denies: chest pain, palpitations, irregular heart rhythm, edema, lightheadedness, syncope, pre-syncope, dyspnea on exertion or orthopnea Resp: Denies: dyspnea, productive cough, non-productive cough, wheezing, hemoptysis or chest congestion GI: Reports: abdominal pain, nausea and vomiting; Denies: hematemesis, coffee ground emesis, heartburn, diarrhea, constipation, GI cramping, hematochezia or melena : Denies: flank pain, dysuria, urinary frequency, urinary urgency or hematuria Musc: Denies: neck pain, back pain, extremity pain, extremity swelling, joint pain, joint swelling, joint redness, joint warmth or joint stiffness Skin/Breast: Denies: rash, pruritus, erythema, skin tenderness or jaundice Neuro: Denies: headache(s), numbness in extremities, weakness in extremities, sensory changes, lack of coordination, difficulty walking, dizziness, vertigo, confusion, Slurred speech present or seizure-like activity David/Lymph: Denies: easy bruising, easy bleeding, petechiae, purpura or enlarged lymph nodes All/Imm: Denies: urticaria, throat swelling, tongue swelling, facial swelling or acute wheezing PFSH ED PFSH: Medical History Fibromyalgia She states that she was diagnosed with fibromyalgia in 2018. Has never been on any medication for this. Mild intermittent asthma without complication Diagnosed with asthma as a child. She states that she is largely asymptomatic and uses her albuterol inhaler 1 or 2 times a month. PTSD (post-traumatic stress disorder) States that she has anxiety and depression which was previously managed with amitriptyline BuSpar and Lexapro. She states that when she found out she was she stopped using these medications as she was worried about its effect on the . Currently denies suicidal/homicidal ideation. This is managed by Dr. garcias at the [facility] Surgical History H/O removal of cyst (~2014) BENIGN SKIN CYST REMOVED FROM LOWER BACK Hx of tonsillectomy (~2010) Done at the age of 15-denies any complications with anesthesia Family History Grandmother Cancer Grandmother Cancer Diabetes Mother Chronic kidney disease (CKD) Grandfather Hypertension Unknown Psychiatric illness Other CAD (coronary artery disease) Denies family history of Stroke Social History Smoking and tobacco status: never smoked Alcohol intake: unknown Additional social history: - Tobacco use: Started smoking at age 17 and smoked 1/2-1 pack per day until she quit at age 19. Denies any tobacco use since then. Alcohol Use ? denies Drug Use: Denies Current Work/Study Status: Unemployed not looking for work. Physical Exam Const: COMMON NORMALS: no acute distress, patient oriented x3, no limitations, healthy appearing and well nourished GENERAL APPEARANCE: cooperative, well kempt and well developed HENMT: COMMON NORMALS: normocephalic, atraumatic, external ears normal, EAC's normal and Normal external nose present HEAD & SCALP: normal to inspection, normocephalic and atraumatic FACE & SINUS: normal facial exam and face symmetric NOSE: Normal external nose present and Normal nares present EXTERNAL EAR: Yes external ears normal EXTERNAL AUDITORY CANAL: EAC's normal MOUTH: Normal oral and palatal mucosa present, lip normal and tongue normal Eye: COMMON NORMALS: Equal, round and reactive pupils present and conjunctivae normal GENERAL EYE: appearance normal, both eyes and all related structures ALIGNMENT: Yes alignment normal PERIORBITAL: periorbital findings normal EYELID: eyelids normal CONJUNCTIVA: Yes conjunctivae normal SCLERA: sclerae normal PUPIL: Yes Equal, round and reactive pupils present Neck/C-Spine: COMMON NORMALS: full ROM, no lymphadenopathy, supple, no meningeal signs and no JVD GENERAL: Yes normal visual inspection and Yes trachea midline Chest: COMMONS NORMALS: normal inspection of the chest and normal palpation of entire chest wall Resp: COMMON NORMALS: normal respiratory effort, No retractions and No use of accessory muscles EFFORT & INSPECTION: Yes able to speak in complete sentences and Yes symmetric chest movement AUSCULTATION: no crackles, no rales, no rhonchi and no wheezes Cardio: COMMON NORMALS: no JVD, regular rate, regular rhythm, S1 normal heart sound present and S2 normal heart sound present RATE: regular rate RHYTHM: regular rhythm HEART SOUNDS: S1 normal heart sound present, S2 normal heart sound present, no click, no gallops, no murmurs, no rubs and abnormal split S2 GI: COMMON NORMALS: Soft to palpation and No hepatosplenomegaly present PALPATION: Yes Soft to palpation, No Tenderness to palpation present (GI), No Guarding due to palpation present (GI), No Rigid due to palpation, Yes No hepatosplenomegaly present, No Hernia present, No Palpable mass present and No Pulsatile mass present : COMMON NORMALS: Yes no CVA tenderness BLADDER/KIDNEY EXAM: Yes no CVA tenderness EXTERNAL FEMALE EXAM: No Hernia present Back/Pelvis: COMMON NORMALS: no CVA tenderness, thoracic and lumbar spine normal to inspection, no thoracic nor lumbar tenderness and thoraco-lumbar ROM normal Extremity: COMMON NORMALS: normal to inspection, full ROM, capillary refill normal, no joint enlargement, no clubbing, cyanosis or edema and no calf tenderness Neuro: COMMON NORMALS: patient oriented x3, CN's II-XII intact bilaterally, moves all extremities, no focal motor deficits and no sensory deficits noted MENINGEAL SIGNS: Yes no meningeal signs SPEECH: speech normal Psych: COMMON NORMALS: mental status grossly normal, Normal thought process present, cooperative, normal affect, speech normal and activity/motor behavior normal APPEARANCE: Yes well kempt SPEECH: Yes normal speech THOUGHT PROCESS: Normal thought process present Skin: COMMON NORMALS: no rashes or lesions noted, turgor normal, no jaundice, no petechiae and no mottling GENERAL SKIN EXAM: no rashes or lesions noted and turgor normal Course Vital Signs: Vital signs: Vital Signs Temperature 98.1 F 09/28/19 14:59 Pulse Rate 76 09/28/19 14:59 Respiratory Rate 16 09/28/19 14:59 Blood Pressure 105/71 09/28/19 14:59 Pulse Oximetry 97 09/28/19 14:59 MDM - Abdominal Pain MDM Narrative: Medical decision making narrative: Arrival - Candace is a 23-year-old female who comes in complaining of upper abdominal pain intermittently for the past 2 days. Vital signs are stable on her exam at this time shows minimal if any tenderness with no signs of peritonitis. Differential is gastritis, cholecystitis, pancreatitis, bowel obstruction among many others. Initiate work-up patient appears stable at this time we will give therapy for her nauseousness. Discharge -patient has not had sensation of bowel was completely and is only vomited twice once in the past 2 days each. Believe this excludes bowel obstruction and there is no bowel obstruction seen on ultrasound. There is no evidence of cholecystitis, pancreatitis, splenomegaly or abnormality seen on ultrasound. Patient has no pain at this time. I believe she has nonspecific intermittent abdominal pain. I have offered to work her up further with a CT scan but she declines. She agrees to return should her symptoms change or worsen but at this time she is reassured and would like to go home. Patient has no lower abdominal pain although patient did not describe any lower abdominal pain. I see no sign of appendicitis, ovarian pathology or lower GI problems at this time. Lab Data: Attestation: I reviewed the patient's lab results. Labs: Lab Results 09/28/19 09/28/19 09/28/19 Range/Units 12:25 12:25 12:25 WBC 11.1 H (4.0-10.0) 10^3/ uL RBC 5.40 H (4.1-5.3) 10^6/u L Hgb 13.9 (11.5-15.3) g/dL Hct 43.2 (37.0-47.0) % MCV 80.0 L (81-99) fL MCH 25.7 L (28.0-34.0) pg MCHC 32.2 (30.0-36.0) g/dL RDW 12.2 (12.1-15.1) % Plt Count 544 H (130-400) 10^3/c mm MPV 9.4 (7.4-10.4) fL Neut % (Auto) 53.6 % Lymph % (Auto) 36.6 % [place] % (Auto) 6.4 % Eos % (Auto) 2.3 % Baso % (Auto) 0.8 % Neut # (Auto) 5.9 (1.8-7.7) 10^3/u L Lymph # (Auto) 4.1 (0.8-4.8) 10^3/u L [place] # (Auto) 0.7 (0.2-0.9) 10^3/u L Eos # (Auto) 0.3 (0.0-0.8) 10^3/u L Baso # (Auto) 0.1 (0.0-0.1) 10^3/u L Nucleated RBC % (a uto) 0 % Nucleated RBCs # 0.0 /100WBC Sodium 135 L (136-145) mmol/L Potassium 4.1 (3.5-5.1) mmol/L Chloride 99 (98-107) mmol/L Carbon Dioxide 23 (22-29) mmol/L Anion Gap 17.1 (5-19) BUN 14 (6-20) mg/dL Creatinine 0.8 (0.5-0.9) mg/dL GFR Calculation 88.1 L (90-130) mL/min Glucose 102 (65-115) mg/dL Calculated Osmolal ity 276 L (285-295) mOsm/k g Calcium 10.2 (8.5-10.5) mg/dL Total Bilirubin 0.5 (0.15-1.2) mg/dL AST 15 (0-32) U/L ALT 14 (0-33) U/L Alkaline Phosphata se 122 H (35-105) IU/L Total Protein 7.9 (6.6-8.7) g/dL Albumin 5.1 (3.5-5.2) g/dL Globulin 2.8 (1.3-4.6) g/dL Lipase 25 (13-60) U/L HCG, Qual Negative (Negative) Urine Color (Yellow) Urine Appearance (CLEAR) Urine pH (5-7) Ur Specific Gravit y (1.005-1.030) Urine Protein (Negative) Urine Glucose (UA) (Normal) Urine Ketones (Negative) Urine Blood (Negative) Urine Nitrate (Negative) Urine Bilirubin (NEGATIVE) Urine Urobilinogen (Negative) mg/dL Ur Leukocyte Sil ase (Negative) Urine RBC (0-2) /hpf Urine WBC (0-5) /hpf Ur Squamous Epith Cells (0-5) Urine Bacteria (NONE) Urine Mucus 09/28/19 Range/Units 12:45 WBC (4.0-10.0) 10^3/ uL RBC (4.1-5.3) 10^6/u L Hgb (11.5-15.3) g/dL Hct (37.0-47.0) % MCV (81-99) fL MCH (28.0-34.0) pg MCHC (30.0-36.0) g/dL RDW (12.1-15.1) % Plt Count (130-400) 10^3/c mm MPV (7.4-10.4) fL Neut % (Auto) % Lymph % (Auto) % [place] % (Auto) % Eos % (Auto) % Baso % (Auto) % Neut # (Auto) (1.8-7.7) 10^3/u L Lymph # (Auto) (0.8-4.8) 10^3/u L [place] # (Auto) (0.2-0.9) 10^3/u L Eos # (Auto) (0.0-0.8) 10^3/u L Baso # (Auto) (0.0-0.1) 10^3/u L Nucleated RBC % (a uto) % Nucleated RBCs # /100WBC Sodium (136-145) mmol/L Potassium (3.5-5.1) mmol/L Chloride (98-107) mmol/L Carbon Dioxide (22-29) mmol/L Anion Gap (5-19) BUN (6-20) mg/dL Creatinine (0.5-0.9) mg/dL GFR Calculation (90-130) mL/min Glucose (65-115) mg/dL Calculated Osmolal ity (285-295) mOsm/k g Calcium (8.5-10.5) mg/dL Total Bilirubin (0.15-1.2) mg/dL AST (0-32) U/L ALT (0-33) U/L Alkaline Phosphata se (35-105) IU/L Total Protein (6.6-8.7) g/dL Albumin (3.5-5.2) g/dL Globulin (1.3-4.6) g/dL Lipase (13-60) U/L HCG, Qual (Negative) Urine Color Yellow (Yellow) Urine Appearance Clear (CLEAR) Urine pH 6 (5-7) Ur Specific Gravit y 1.020 (1.005-1.030) Urine Protein Neg (Negative) Urine Glucose (UA) Norm (Normal) Urine Ketones 1+ H (Negative) Urine Blood Neg (Negative) Urine Nitrate Negative (Negative) Urine Bilirubin Neg (NEGATIVE) Urine Urobilinogen Neg (Negative) mg/dL Ur Leukocyte Sil ase Negative (Negative) Urine RBC None (0-2) /hpf Urine WBC None (0-5) /hpf Ur Squamous Epith Cells 0-4 H (0-5) Urine Bacteria 1+ H (NONE) Urine Mucus 1+ Imaging Data ^: US: Radiologist's impression: [address] [address] Ultrasound Report Signed Patient: Candace Velásquez Unit #: [id number] : [id number] Age/Sex: 23 / F ADM Date: 09/28/19 Loc: ER Room/Bed: Attending Dr: Ordering Provider/Ordering MD: Nadya Magaña DO Date of Service: 09/28/19 Procedure(s): US abdomen complete* [id number] Accession Number(s): [id number] Report Number: [id number] WS: [id number] Complete ABDOMINAL ULTRASOUND HISTORY: Abdominal Pain COMPARISON: None available. Liver: 16.2 cm in length. Liver is normal size and echogenicity with no mass or intrahepatic dilatation. Gallbladder: Normally distended with no gallstones, wall thickening or pericholecystic fluid. Gallbladder wall thickness: 0.2 cm. Pancreas: Normal size and echogenicity. CBD: 0.4 cm. Right kidney: 10.9 cm x 5.5 cm x 4.1 cm. No mass, cortical thickening or hydronephrosis. Left kidney: 11.6 cm x 6.4 cm x 5.0 cm. No mass, cortical thickening or hydronephrosis. Spleen: Normal size and echogenicity. Abdominal aorta and IVC are within normal limits. No ascites. US/US abdomen complete* [id number] IMPRESSION: Normal complete abdomen ultrasound. Dictated By: Emily Greenberg DO Signed By: Emily Greenberg DO Signed Date/Time: 09/28/191441 DD/ 144 Discharge Plan Discharge Patient Disposition: Home, Self-Care Clinical Impression: Abdominal pain Qualifiers: Abdominal location: upper abdomen, unspecified Qualified Code(s): R10.10 - Upper abdominal pain, unspecified Condition: Stable Prescriptions: No Action prenat.vits,[id number] Tablet 1 tab PO ONCE RF: 0 ferrous sulfate 325 mg (65 mg iron) tablet 650 mg PO DAILY RF: 0 ibuprofen 800 mg tablet 800 mg PO TID PRNRF: 0 Discharge Orders: Discharge Order (Routine); Ordered 09/28/19 Ordered By: Nadya Magaña Referrals: Brooklyn Means FNP [Primary Care Provider] - 1-3 days Discharge Diet: Advance as tolerated and Clear Liquid Discharge Activity: Increase activity as tolerated Patient Instructions: Abdominal Pain (ED) Activity Restrictions/Additional Instructions: Please return to the ER immediately for any of the signs or symptoms listed on your discharge instruction sheets, worsening/changing of your symptoms, you are not getting better as quickly as expected, or for ANY other cause or concerns. Discharge Date/Time: 09/28/19 15:02 Coding Level of Care Code ED Technology Internship for Chg Fwd Exam Comprehensive
[2019-09-28 12:33] LABS: Basophils # 0.1 10^3/uL (0.0-0.1); Basophils % 0.8 %; Eosinophils # 0.3 10^3/uL (0.0-0.8); Eosinophils % 2.3 %; Hematocrit 43.2 % (37.0-47.0); Hemoglobin 13.9 g/dL (11.5-15.3); Lymphocytes # 4.1 10^3/uL (0.8-4.8); Lymphocytes % 36.6 %; Mean Corpuscular HGB Conc 32.2 g/dL (30.0-36.0); Mean Corpuscular Hemoglobin 25.7 pg (28.0-34.0); Mean Platelet Volume 9.4 fL (7.4-10.4); Monocytes # 0.7 10^3/uL (0.2-0.9); Monocytes % 6.4 %; Neutrophils # 5.9 10^3/uL (1.8-7.7); Neutrophils % 53.6 %; Nucleated Red Blood Cells % 0 %; Platelet Count 544 10^3/cmm (130-400); Red Cell Distribution Width 12.2 % (12.1-15.1); White Blood Count 11.1 10^3/uL (4.0-10.0)
[2019-09-28] MEDS: sodium chloride 0.9% 1,000 ML 100 ML IV (12:47)
[2019-09-28] MEDS: sodium chloride 0.9% 1,000 ML 999 ML IV (12:49)
[2019-09-28 12:51] LABS: HCG, Serum Qual Negative (Negative)
[2019-09-28 12:56] LABS: Alanine Aminotransferase 14 U/L (0-33); Albumin Level 5.1 g/dL (3.5-5.2); Alkaline Phosphatase 122 IU/L (35-105); Anion Gap 17.1 (5-19); Aspartate Amino Transferase 15 U/L (0-32); Blood Urea Nitrogen 14 mg/dL (6-20); Calcium 10.2 mg/dL (8.5-10.5); Carbon Dioxide 23 mmol/L (22-29); Chloride 99 mmol/L (98-107); Creatinine Clr Calc Pharmacy 151.1072; Globulin 2.8 g/dL (1.3-4.6); Glomerular Filtration Rate 88.1 mL/min (90-130); Glucose 102 mg/dL (65-115); Lipase 25 U/L (13-60); Osmolality Calculated 276 mOsm/kg (285-295); Potassium 4.1 mmol/L (3.5-5.1); Sodium 135 mmol/L (136-145); Total Bilirubin 0.5 mg/dL (0.15-1.2); Total Protein 7.9 g/dL (6.6-8.7)
[2019-09-28 13:08] LABS: Bilirubin Urine Neg (NEGATIVE); Blood Urine Neg (Negative); Glucose Urine UA Norm (Normal); Ketones Urine 1+ (Negative); Leukocyte Esterase Urine Negative (Negative); Nitrate Urine Negative (Negative); Protein Urine Neg (Negative); Urine Appearance Clear (CLEAR); Urine Color Yellow (Yellow); Urobilinogen Urine Neg (Negative); pH Urine 6 (5-7)
[2019-09-28 13:14] LABS: Squamous Epithelial Cell Urine 0-4 (0-5)
[2019-09-28 13:15] LABS: Add Urine Culture? No; Bacteria Urine 1+; Mucus Urine 1+
[2019-09-28 14:59] VITALS: BP 105/71; PULSE 76; RESP 16; TEMP 36.7; O2SAT 97
== END 2019-09-28 15:02 | disposition home or self-care (01) ==
PROVIDERS: Emergency Provider Emergency Medicine; PCP Nurse Practitioner
DX: R10.10 Upper abdominal pain, unspecified (principal); Z87.891 Personal history of nicotine dependence
CPT/HCPCS: 12345; 76700; 80053; 81001; 83690; 84703; 85025; 96360; 96361; 99283; J7030

== ENCOUNTER 2019-11-28 14:48 | Outpatient (CLI) | payer OTHER, SELFPAY ==
[2019-11-28 15:33] LABS: Basophils # 0.1 10^3/uL (0.0-0.1); Basophils % 0.9 %; Eosinophils # 0.3 10^3/uL (0.0-0.8); Eosinophils % 2.3 %; Hematocrit 39.6 % (37.0-47.0); Hemoglobin 12.8 g/dL (11.5-15.3); Lymphocytes # 4.8 10^3/uL (0.8-4.8); Lymphocytes % 37.7 %; Mean Corpuscular HGB Conc 32.3 g/dL (30.0-36.0); Mean Corpuscular Hemoglobin 26.2 pg (28.0-34.0); Mean Corpuscular Volume 81.1 fL (81-99); Mean Platelet Volume 9.5 fL (7.4-10.4); Monocytes # 0.9 10^3/uL (0.2-0.9); Monocytes % 6.8 %; Neutrophils # 6.59 10^3/uL (1.8-7.7); Neutrophils % 51.9 %; Nucleated Red Blood Cells % 0 %; Platelet Count 465 10^3/cmm (130-400); Red Blood Count 4.88 10^6/uL (4.1-5.3); Red Cell Distribution Width 12.6 % (12.1-15.1); White Blood Count 12.7 10^3/uL (4.0-10.0)
[2019-11-28 15:44] LABS: Ferritin 68 ng/mL (15-150); Iron 40 ug/dL (37-145); Percent Saturation 13.1 % (20-50); Total Iron Binding Capacity 305 mcg/dl; Unsaturated Iron Binding 265 ug/dL (112-347)
== END 2019-11-28 14:49 | disposition home or self-care (01) ==
LOC: ONCMED 14:53
PROVIDERS: PCP Nurse Practitioner; Visit Provider Internal Medicine Hematology & Oncology
DX: D47.3 Essential (hemorrhagic) thrombocythemia (principal)
CPT/HCPCS: 36415; 82728; 83540; 83550; 85025

== ENCOUNTER 2019-11-29 06:00 | Outpatient (CLI) | payer OTHER, SELFPAY ==
--- NOTE | 2019-11-29 16:27 | ONC FU_ITS ---
Dr. Negrete follow up note Patient: Candace Velásquez Unit #: [id number]: 1995 Dicatated By: Moise Negrete M.D.Date of Visit:Nov 29, 2019 Onc Med Follow-up/Prog Note History of Present Illness: Ms. Candace Velásquez, is a 24-year-old female with 7-year history of off and on mild thrombocytosis and also off and on iron deficiency anemia was treated with off and on iron supplements and the last time she took it in July 2019. But recently start developing intolerance to oral iron so she was somewhat noncompliant. Her follow-up labs done recently on August 13, 2019 showed white blood count 10.9 hemoglobin 12.9 hematocrit 40.1 platelets 493,000 with a normal differential repeat labs on August 20, 2019 showed white blood count 12 hemoglobin 12.7 hematocrit 39.4 and platelets 468,000 Her last menstrual period was in September 2019 when she got first time and this year after delivery, she is on control pills. Patient has history of fibromyalgia, denies any family history of thrombocytosis or blood disorder. Denies any history of chronic infections. Patient denies any history of melena or hematochezia, or hemoptysis or hematemesis or indigestion. Denies any history of hematuria, no weight loss or recurrent fever but night sweating since last month. Denies any peripheral lymphadenopathy. Denies any abdominal fullness. Denies any petechia or ecchymosis or nosebleed or gum bleed. Evaluated via [facility], patient denies any specific complaints, no fever chills mild nausea but no vomiting, no diarrhea constipation, no abdominal pain, no indigestion, no excessive gas or constipation, tolerating oral iron well.. Medications: Progesterone 1 Tablet Oral daily Allergies: Bactrim and Lyrica. Review of Systems: Review of Systems is not available for this patient. Vital Signs: Vitals are not available for this patient. Performance Status: 0 - Fully active, able to carry on all predisease activities without restrictions. (ECOG) Physical Examination: ENMT - Denies any mouth sores, thrush or jaundice, Respiratory - Denies any shortness of breath or wheezing, Cardiovascular - Denies any palpitation or tachycardia, Abdomen - Denies any abdominal pain or fullness, Extremities - Denies any lower extremity edema. Lab/Imaging: Test performed on Sep 24, 2019 09:55 WBC 9.1 10 3/uL RBC 4.96 10 6/uL HGB 12.7 g/dL HCT 40.3 % MCV 81.3 fL MCH 25.6 pg MCHC 31.5 g/dL RDW 12.1 % Platelet Count 490 10 3/cmm MPV 9.6 fL Neutrophils 4.6 10 3/uL Lymphocytes 3.4 10 3/uL Monocytes 0.7 10 3/uL Eosinophils 0.3 10 3/uL Basophils 0.1 10 3/uL Neutrophil % 50.8 % Lymphocyte % 37.4 % Monocyte % 7.9 % Eosinophil % 2.8 % Basophils % 0.8 % NRBC % 0 % Test performed on Sep 17, 2019 12:41 Ferritin 52 ng/mL Iron 37 mcg/dL Vitamin B12 353 pg/mL Iron Binding Capacity (TIBC) 298 mcg/dl % Iron Saturation 12.4 % UIBC 261 mcg/dL ESR (Sed Rate) 17 mm/hr LACEY NEGATIVE LACEY IFA is a first line screen for detecting the presence of up to approximately 150 autoantibodies in various autoimmune diseases. A negative LACEY IFA result suggests an LACEY-associated autoimmune disease is not present at this time, but is not definitive. If there is high clinical suspicion for Sjogren's syndrome, testing for anti-SS-A/Ro antibody should be considered. Anti-Sharee-1 antibody should be considered for clinically suspected inflammatory myopathies. AC-0: Negative International Consensus on LACEY Patterns (https://doi.org/10.1515/arxw-2986-8809) For additional information, please refer to http://education.Aveillant.VitalTrax/faq/JHZ826 (This link is being provided for informational/ educational purposes only.) THIS TEST WAS PERFORMED AT: [facility] [address] [place] [address] KEITH SERVIN DO,MPH Impression: Mild isolated thrombocytosis, etiology could be multifactorial including iron deficiency, chronic blood loss e.g. history of heavy menses. Chronic inflammation/connective tissue disorder. B12 folate deficiency, or myeloproliferative disorder like CML or essential thrombocytosis but less likely History of heavy menses Off and on history of iron deficiency anemia, treated successfully with oral iron supplement on multiple occasions. History of fibromyalgia. Plan: Discussed with patient regarding her labs white blood count 12.7 hemoglobin 12.8 hematocrit 39.0 platelets 465,000 compared to 490,000 on September 24, 2019, iron saturation 13.1, ferritin 68 compared to 52 in September 2019, iron 40, TIBC 305. Clinically, patient is doing well, no new signs symptoms, tolerating oral iron well and follow-up CBC and iron studies shows some improvement in her iron stores and hemoglobin in normal range and improvement in mild thrombocytosis also. As patient is tolerating iron orally well will continue same for another 2 months and repeat her CBC with iron studies, clinically it appears with normalization of iron stores her mild probably reactive thrombocytosis may improve. Return to clinic in 2 months with CBC and iron studies Signed By: Moise Negrete M.D. <<Signature on File>>
== END 2019-11-29 06:01 | disposition home or self-care (01) ==
LOC: ONCMED 15:27
PROVIDERS: PCP Nurse Practitioner; Visit Provider Internal Medicine Hematology & Oncology
DX: D47.3 Essential (hemorrhagic) thrombocythemia (principal); N92.0 Excessive and frequent menstruation with regular cycle; M79.7 Fibromyalgia; Z86.2 Personal history of diseases of the blood and blood-forming organs and certain disorders involving the immune mechanism; Z79.3 Long term (current) use of hormonal contraceptives

== ENCOUNTER → 2020-10-31 12:15 | Outpatient (BNVA) | payer OTHER, SELFPAY | PROVIDERS: PCP Nurse Practitioner; Visit Provider Nurse Practitioner Family | DX: Z20.822 Contact with and (suspected) exposure to COVID-19 (principal); J06.9 Acute upper respiratory infection, unspecified | CPT/HCPCS: 87635 ==

== ENCOUNTER → 2020-11-27 15:35 | Outpatient (BNVA) | payer OTHER, SELFPAY | PROVIDERS: PCP Nurse Practitioner; Visit Provider Nurse Practitioner Women's Health | DX: O21.9 Vomiting of pregnancy, unspecified (principal); Z3A.00 Weeks of gestation of pregnancy not specified | CPT/HCPCS: 81025 ==

== ENCOUNTER 2020-12-09 15:20 | Outpatient (CLI) | payer OTHER, SELFPAY ==
--- NOTE | 2020-12-09 15:00 | US_ITS ---
WS: [id number] ULTRASOUND EARLY TECHNIQUE: Transabdominal sonography of the pelvis was performed. Followed by transvaginal sonography to better evaluate the uterus and ovaries. CLINICAL INFORMATION: N92.6 - Irregular menstruation, unspecified LMP: 09/28/2020 Beta hCG: Unknown. COMPARISON: None. FINDINGS: Cervix measures 4.1 cm UTERUS AND GESTATIONAL SAC Intrauterine gestations: Estimated gestational age: 10w2d Estimated delivery July 05, 2021 Yolk sac: 0.6 cm. Marble rump length (CRL): 3.4 cm. heart motion: 167 BPM. Subchorionic hemorrhage: None. OVARIES Right ovary: Normal. Left ovary: Normal. FREE FLUID None. US/US OB <= 14 weeks fetus [id number] IMPRESSION: 1. Single live intrauterine . 2. Estimated gestational age; 10w2d 3. Cervix is long and closed. 4. Normal adnexa.
== END 2020-12-09 15:21 | disposition home or self-care (01) ==
LOC: RAD 15:24
PROVIDERS: PCP Nurse Practitioner; Visit Provider Nurse Practitioner Women's Health
DX: Z36.87 Encounter for antenatal screening for uncertain dates (principal); N92.6 Irregular menstruation, unspecified; Z3A.10 10 weeks gestation of pregnancy
CPT/HCPCS: 76801

== ENCOUNTER → 2020-12-29 13:34 | Outpatient (BNVA) | payer OTHER, SELFPAY | PROVIDERS: PCP Nurse Practitioner; Visit Provider Obstetrics & Gynecology | DX: O21.9 Vomiting of pregnancy, unspecified (principal); J45.20 Mild intermittent asthma, uncomplicated; E03.9 Hypothyroidism, unspecified; Z34.80 Encounter for supervision of other normal pregnancy, unspecified trimester | CPT/HCPCS: 80307; 84315; 84443; 85025; 86592; 86762; 86803; 86850; 86900; 87086; 87340; 87491; 87591; 87661; 88175 ==

== ENCOUNTER → 2021-01-19 10:37 | Outpatient (BNVA) | payer OTHER, SELFPAY | PROVIDERS: PCP Nurse Practitioner; Visit Provider Obstetrics & Gynecology | DX: Z34.80 Encounter for supervision of other normal pregnancy, unspecified trimester (principal) | CPT/HCPCS: 84315; 87481; 87512; 87798; 87799 ==

== ENCOUNTER → 2021-03-23 13:15 | Outpatient (BNVA) | payer OTHER, SELFPAY | PROVIDERS: PCP Nurse Practitioner; Visit Provider Obstetrics & Gynecology | DX: Z34.80 Encounter for supervision of other normal pregnancy, unspecified trimester (principal) | CPT/HCPCS: 84315; 87086 ==

== ENCOUNTER → 2021-04-13 13:33 | Outpatient (BNVA) | payer OTHER, SELFPAY | PROVIDERS: PCP Nurse Practitioner; Visit Provider Obstetrics & Gynecology | DX: Z34.90 Encounter for supervision of normal pregnancy, unspecified, unspecified trimester (principal); O99.891 Other specified diseases and conditions complicating pregnancy; N23 Unspecified renal colic; R33.9 Retention of urine, unspecified | CPT/HCPCS: 82950; 84315; 84443; 85025; 87086 ==

== ENCOUNTER → 2021-04-16 08:56 | Outpatient (BNVA) | payer OTHER, SELFPAY | PROVIDERS: PCP Nurse Practitioner; Visit Provider Obstetrics & Gynecology | DX: Z34.80 Encounter for supervision of other normal pregnancy, unspecified trimester (principal) | CPT/HCPCS: 84315; 87086 ==

== ENCOUNTER 2021-04-19 09:32 | Observation (INO) | payer OTHER, SELFPAY ==
[2021-04-19] VITALS (46 sets, daily range): BP systolic 115–135; BP diastolic 58–71; PULSE 75–96; RESP 16–18; TEMP 35.6–36.2; O2SAT 91–99; BMI 43.0
[2021-04-19 04:53] LABS: Bilirubin Urine Neg (Negative); Blood Urine 3+ (Negative); Glucose Urine UA Norm (Normal); Ketones Urine Negative (Negative); Leukocyte Esterase Urine 1+ (Negative); Nitrate Urine Negative (Negative); Protein Urine Neg (Negative); Urine Appearance SL Hazy (CLEAR); Urine Color Yellow (Yellow); Urobilinogen Urine Norm (Negative); pH Urine 6 (5-7)
[2021-04-19 04:57] LABS: RBC Urine 25-40 /hpf (0-2); WBC Urine 0-4 /hpf (0-5)
[2021-04-19 04:58] LABS: Add Urine Culture? No; Bacteria Urine 2+ /hpf; Mucus Urine 1+ /hpf; Squamous Epithelial Cell Urine 15-25 /hpf (0-5)
--- NOTE | 2021-04-19 05:29 | USR_ITS ---
PROCEDURE INFORMATION: Exam: US Retroperitoneal; Complete; Kidneys and Bladder Exam date and time: 04/19/2021 5:29 AM Age: 25 years old Clinical indication: Abdominal pain; Flank; Left; Patient HX: Patient states she is 29 weeks ; Additional info: CVA tenderness and blood in urine TECHNIQUE: Imaging protocol: Real-time ultrasound of the retroperitoneum with image documentation. Complete exam focused on the kidneys and bladder. COMPARISON: US abdomen complete* [id number] 09/28/2019 1:16 PM FINDINGS: Right kidney: The right kidney measures 11.5 cm in length. Cortex measures 1.6 cm in thickness. There is no hydronephrosis or mass. There is a 1.2 cm echogenicity in the midportion of the right kidney which may represent a nonobstructing renal calculus. No masses are seen. Left kidney: The left kidney measures 13.3 cm in length. There is mild left hydronephrosis. The renal cortex measures 2 cm in thickness. There is a 4 mm echogenicity in the midportion of the kidney which may represent a nonobstructing calculus. No masses are seen. Urinary bladder: Unremarkable. US/US renal BI* [id number] IMPRESSION: 1. Mild left hydronephrosis. 2. Small echogenicity in each kidney consistent with nonobstructing renal calculi.
[2021-04-19 05:34] LABS: Basophils # 0.1 10^3/uL (0.0-0.1); Basophils % 0.3 %; Eosinophils # 0.1 10^3/uL (0.0-0.8); Eosinophils % 0.4 %; Hematocrit 32.4 % (37.0-47.0); Hemoglobin 10.7 g/dL (11.5-15.3); Lymphocytes # 2.5 10^3/uL (0.8-4.8); Lymphocytes % 15.2 %; Mean Corpuscular Hemoglobin 27.1 pg (28.0-34.0); Mean Platelet Volume 9.3 fL (7.4-10.4); Monocytes # 0.9 10^3/uL (0.2-0.9); Monocytes % 5.4 %; Neutrophils # 12.52 10^3/uL (1.8-7.7); Neutrophils % 77.6 %; Nucleated Red Blood Cells % 0 %; Platelet Count 395 10^3/cmm (130-400); Red Blood Count 3.95 10^6/uL (4.1-5.3); Red Cell Distribution Width 12.4 % (12.1-15.1); White Blood Count 16.2 10^3/uL (4.0-10.0)
[2021-04-19] MEDS: fentaNYL 50 mcg/mL INJ 2mL IVP ×3 (05:41→08:30)
--- NOTE | 2021-04-19 07:33 | XRR_ITS ---
PROCEDURE INFORMATION: Exam: XR Abdomen Exam date and time: 04/19/2021 7:33 AM Age: 25 years old Clinical indication: Abdominal pain; Flank; Left; Additional info: Possible kidney stones TECHNIQUE: Imaging protocol: XR of the abdomen. Views: Frontal supine view of the abdomen. 1 View. COMPARISON: US abdomen complete* [id number] 09/28/2019 1:16 PM FINDINGS: Gastrointestinal tract: Normal. No bowel dilation. Organs: An 8 mm calcification projects on the right kidney. No definite calculi are seen in the projection of the ureters or urinary bladder. Bones/joints: Unremarkable. Other findings: The fetus is present in the cephalic presentation. XR/XR KUB portable [id number] IMPRESSION: 1. An 8 mm calcification projects on the right kidney. 2. No obvious ureteral calculi. 3. Fetus in the cephalic presentation.
--- NOTE | 2021-04-19 08:00 | P.MISC_ITS ---
Miscellaneous Note Note: Brief UROLOGY note Called by Dr. Hawthorne this morning for a 29-week IUP patient complaining of multiple weeks of low back pain that seems to be more on the left side and worse with voiding. An ultrasound is performed today showed possibly a stone in each kidney, larger in the RIGHT and much smaller on the LEFT. No severe hydronephrosis on either side but possible mild dilation on the left. I spoke with the OB nurse who stated that the patient might have had pain for even months . Had taken Tylenol for the pain but it was not effective and she presented for further evaluation and [facility]. I recommended Dr. Hawthorne to proceed with a KUB. Can consider further imaging (limited IVP) if pain cannot be adequately managed and is persistent. Currently there is no emergency concern. Urine does not show infection. No evidence of sepsis. She is pending evaluation by account strategist. I will review the KUB. Will discuss with Dr. Hawthorne and will evaluate the patient when I am back tomorrow.
[2021-04-19] MEDS: HYDROcodone-acetaminophen 10-325 mg Tablet 1 TAB PO ×2 (09:25→14:13)
--- NOTE | 2021-04-19 14:27 | PM.OBGYHP ---
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 History of Present Illness Candace Velásquez is a 25 year old female established patient with LMP of 09/28/2020, ZULMA 07/05/2021 based on LMP and consistent with 10 week ultrasound, placing her at 29 0/7 weeks today Present Details : 2 Para: 1 Review of Systems General: Reports: 10 or more systems reviewed and unremarkable except in HPI and below GI: Reports: other (right side mid back pain) : Reports: flank pain (right side) Medications/Allergies Home Medications Medication Instructions Recorded Confirmed Last Taken Type levothyroxine 25 mcg tablet 25 mcg PO DAILY 11/27/20 04/19/21 04/18/21 08:00 History prenat.vits,tr,[id number]-[id number] 1 tab PO DAILY 12/16/20 04/19/21 04/18/21 08:00 History acetaminophen 650 mg PO PRN PRN 04/19/21 04/19/21 04/19/21 01:30 History Allergies Allergy/AdvReac Type Severity Reaction Status Date / Time sulfamethoxazole Allergy Hives Verified 04/19/21 04:41 [From Bactrim] trimethoprim [From Bactrim] Allergy Hives Verified 04/19/21 04:41 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 Has never been on any medication for this. Hypothyroid Mild intermittent asthma without complication Diagnosed with asthma as a child. She states that she is largely asymptomatic and uses her albuterol inhaler 1 or 2 times a month. No pertinent past medical history neghx: htn,dm,thyroid,dvt/pe PCP: Leidy Means PTSD (post-traumatic stress disorder) States that she has anxiety and depression which was previously managed with amitriptyline BuSpar and Lexapro. She states that when she found out she was she stopped using these medications as she was worried about its effect on the . Currently denies suicidal/homicidal ideation. This is managed by Dr. garcias at the [facility] Thrombocythemia Surgical History H/O removal of cyst (~2014) BENIGN SKIN CYST REMOVED FROM LOWER BACK Hx of tonsillectomy (~2010) Done at the age of 15-denies any complications with anesthesia Family History Grandmother Cancer mouth Grandmother Cancer Diabetes Mother Chronic kidney disease (CKD) Grandfather Hypertension Unknown Psychiatric illness Other CAD (coronary artery disease) Denies family history of Colon cancer Ovarian cancer Breast cancer Uterine cancer Thyroid disease Stroke Social History Alcohol intake: unknown Other Female Reproductive History: Hx Age of Menarche: 11 History History History 2 Term 1 Miscarriages/Ectopic 0 0 Living Children 1 Care ZULMA Calculator Estimated Delivery Date Method Current WG Current Estimate 07/05/21 LMP (Certain) 29w 0d Other Estimates 07/05/21 Ultrasound #1 29w 0d Specific Issues/Plans IRREGULAR CYCLES CONCEIVED ON CONTROL HYPOTHYROIDISM Vitals/I&O/Wt Last Vital Signs Temp 96.6 F L 04/19/21 05:01 Pulse 87 04/19/21 09:10 Resp 18 04/19/21 08:30 BP 127/71 04/19/21 05:47 Pulse Ox 99 04/19/21 09:10 Weight last 48 hrs Weight 136.078 kg Weight 136.078 kg Physical Exam Narrative: EXAM NARRATIVE: GA: Alert and oriented ?3. Lungs: Clear to auscultation bilaterally. Heart: Regular rhythm and rate. Abdomen: Gravid, full the height equals dates, nontender. MIXING HOUSE OPERATOR: SVE; dilation: 0 cm, effacement: 0%, station: -5, presentation: vx, membranes: im. Extremities: no edema, no cyanosis, no calves pain. heart tracing: Basal rate: 140's bpm, Variability: moderate, Accelerations: present, Decelerations: absent, Contraction: none. Data : 04/19/21 05:25 A&P Assessment and plan (1) Right nephrolithiasis: Mrs. Garcia 25-year-old female with an estimated gestational age of 29 weeks, came to labor and delivery with a complaint of right CVA pain and tenderness. No contractions were noted. No cervical dilation. UA shows significant blood urine 3+. Kidney ultrasound was ordered and kidney stones were noted. Neurology was consulted and recommended a KUB. Patient continue on observation and pain management. She passed a kidney stone of approximately 1 mm. She refers feeling much better she will continue on observation for couple hours. Status: Acute Attestations Medical Necessity Statement*: In my professional opinion per admitting diagnosis Coding Level of Care Code Acute Store Manager for [facility] Diagnoses Right nephrolithiasis N20.0
== END 2021-04-19 16:17 | disposition home or self-care (01) ==
LOC: OPOB 09:33 → OBGYN 09:33
PROVIDERS: Admitting Provider Obstetrics & Gynecology; PCP Nurse Practitioner; Visit Provider Obstetrics & Gynecology
DX: O26.833 Pregnancy related renal disease, third trimester (principal); Z3A.29 29 weeks gestation of pregnancy; N20.0 Calculus of kidney
CPT/HCPCS: 36415; 59025; 74018; 76770; 81001; 85025; 99211; G0378; J3010

== ENCOUNTER 2021-05-25 14:28 | Outpatient (CLI) | payer OTHER, SELFPAY ==
[2021-05-25] VITALS (8 sets, daily range): BP systolic 103–127; BP diastolic 56–73; PULSE 78–112; RESP 17; BMI 41.8
[2021-05-25 15:36] LABS: Basophils % 0.2 %; Eosinophils # 0.2 10^3/uL (0.0-0.8); Eosinophils % 1.1 %; Hemoglobin 10.5 g/dL (11.5-15.3); Lymphocytes # 2.8 10^3/uL (0.8-4.8); Lymphocytes % 19.4 %; Mean Corpuscular HGB Conc 32.8 g/dL (30.0-36.0); Mean Corpuscular Hemoglobin 26.9 pg (28.0-34.0); Mean Corpuscular Volume 81.8 fl (81-99); Mean Platelet Volume 9.8 fL (7.4-10.4); Monocytes # 0.9 10^3/uL (0.2-0.9); Neutrophils # 10.38 10^3/uL (1.8-7.7); Nucleated Red Blood Cells % 0 %; Platelet Count 421 10^3/cmm (130-400); Red Blood Count 3.91 10^6/uL (4.1-5.3); Red Cell Distribution Width 13.2 % (12.1-15.1); White Blood Count 14.4 10^3/uL (4.0-10.0)
[2021-05-25 15:55] LABS: Bacteria Urine TRACE /hpf; Bilirubin Urine Neg (Negative); Blood Urine 2+ (Negative); Glucose Urine UA Norm (Normal); Ketones Urine Negative (Negative); Leukocyte Esterase Urine Negative (Negative); Nitrate Urine Negative (Negative); Protein Urine Neg (Negative); Urine Appearance Clear (CLEAR); Urine Color Yellow (Yellow); Urobilinogen Urine Norm (Negative); WBC Urine RARE /hpf (0-5); pH Urine 6 (5-7)
[2021-05-25 15:56] LABS: Add Urine Culture? No; Calcium Oxalate Crystals Urine 0-4 /hpf
[2021-05-25 15:57] LABS: Actim Prom Negative
[2021-05-25 16:07] LABS: Alanine Aminotransferase < 5 U/L (0-33); Albumin Level 3.7 g/dL (3.5-5.2); Alkaline Phosphatase 123 IU/L (35-105); Anion Gap 16.8 (5-19); Aspartate Amino Transferase 14 U/L (0-32); Blood Urea Nitrogen 6 mg/dL (6-20); Calcium 9.6 mg/dL (8.5-10.5); Carbon Dioxide 19 mmol/L (22-29); Chloride 104 mmol/L (98-107); Globulin 2.9 g/dL (1.3-4.6); Glomerular Filtration Rate 149.1 mL/min (90-130); Glucose 111 mg/dL (65-115); Osmolality Calculated 280 mOsm/kg (285-295); Potassium 3.8 mmol/L (3.5-5.1); Sodium 136 mmol/L (136-145); Thyroid Stimulating Hormone 0.95 uIU/mL (0.27-4.20); Total Bilirubin 0.2 mg/dL (0.15-1.2); Total Protein 6.6 g/dL (6.6-8.7); Uric Acid 4.2 mg/dL (2.4-5.7)
[2021-05-25 16:10] LABS: Urine Creatinine 101 mg/dL (28-217); Urine Protein Random 12 mg/dL
[2021-05-25 16:19] LABS: UPRO/UCREAT Ratio 0.12 mg/mg CR
== END 2021-05-25 16:35 | disposition home or self-care (01) ==
LOC: OPOB 14:29 → OBGYN 14:30
PROVIDERS: PCP Nurse Practitioner; Visit Provider Obstetrics & Gynecology
DX: O26.899 Other specified pregnancy related conditions, unspecified trimester (principal); Z3A.00 Weeks of gestation of pregnancy not specified
CPT/HCPCS: 36415; 80053; 81000; 81001; 82570; 84112; 84156; 84443; 84550; 85025; 87086

== ENCOUNTER → 2021-06-08 13:32 | Outpatient (BNVA) | payer OTHER, SELFPAY | PROVIDERS: PCP Nurse Practitioner; Visit Provider Obstetrics & Gynecology | DX: Z34.80 Encounter for supervision of other normal pregnancy, unspecified trimester (principal) | CPT/HCPCS: 84156; 84315; 87086 ==

== ENCOUNTER → 2021-06-15 14:40 | Outpatient (BNVA) | payer OTHER, SELFPAY | PROVIDERS: PCP Nurse Practitioner; Visit Provider Obstetrics & Gynecology | DX: O26.899 Other specified pregnancy related conditions, unspecified trimester (principal); N20.0 Calculus of kidney | CPT/HCPCS: 84315; 87086 ==

== ENCOUNTER → 2021-06-22 13:44 | Outpatient (BNVA) | payer OTHER, SELFPAY | PROVIDERS: PCP Nurse Practitioner; Visit Provider Obstetrics & Gynecology | DX: Z34.80 Encounter for supervision of other normal pregnancy, unspecified trimester (principal); N20.0 Calculus of kidney | CPT/HCPCS: 84315; 87086 ==

== ENCOUNTER → 2021-06-29 14:11 | Outpatient (BNVA) | payer OTHER, SELFPAY | PROVIDERS: PCP Nurse Practitioner; Visit Provider Obstetrics & Gynecology | DX: Z34.80 Encounter for supervision of other normal pregnancy, unspecified trimester (principal) | CPT/HCPCS: 84315; 87086; 87635 ==

== ENCOUNTER → 2021-07-06 15:55 | Outpatient (BNVA) | payer OTHER, SELFPAY | PROVIDERS: PCP Nurse Practitioner; Visit Provider Obstetrics & Gynecology | DX: Z34.80 Encounter for supervision of other normal pregnancy, unspecified trimester (principal) | CPT/HCPCS: 84315; 87086 ==

== ENCOUNTER 2021-07-07 09:13 | Inpatient (IN) | payer OTHER, SELFPAY ==
[2021-07-07] VITALS (27 sets, daily range): BP systolic 106–157; BP diastolic 56–84; PULSE 71–106; RESP 16–18; TEMP 36.2–36.7; BMI 45.9
[2021-07-07 11:41] LABS: Basophils # 0.1 10^3/uL (0.0-0.1); Basophils % 0.5 %; Eosinophils # 0.1 10^3/uL (0.0-0.8); Eosinophils % 0.9 %; Hematocrit 32.8 % (37.0-47.0); Hemoglobin 10.5 g/dL (11.5-15.3); Lymphocytes % 23.6 %; Mean Corpuscular Hemoglobin 26.1 pg (28.0-34.0); Mean Corpuscular Volume 81.6 fl (81-99); Mean Platelet Volume 10.8 fL (7.4-10.4); Monocytes # 1.1 10^3/uL (0.2-0.9); Monocytes % 8.5 %; Neutrophils # 8.36 10^3/uL (1.8-7.7); Neutrophils % 65.3 %; Nucleated Red Blood Cells % 0 %; Platelet Count 435 10^3/cmm (130-400); Red Blood Count 4.02 10^6/uL (4.1-5.3); Red Cell Distribution Width 14.1 % (12.1-15.1); White Blood Count 12.8 10^3/uL (4.0-10.0)
[2021-07-07] MEDS: dextrose 5%-lactated ringers 1,000 ML 125 ML IV (12:49)
[2021-07-07] MEDS: oxytocin 30 UNIT/500 ML BAG IV (12:49)
--- NOTE | 2021-07-07 17:43 | PC.NURSE ---
Dr Vidales Stated she was able to see the pt's GBS status at the office on their system and the result was negative
--- NOTE | 2021-07-07 18:33 | PM.OPHPUD ---
Labor & Delivery H&P Update Date of Procedure: July 07, 2021 Date H&P Performed: 07/06/21 H&P update information: I have reviewed H&P completed within last 30 days, I have examined patient prior to procedure and Changes to prior documentation as noted here Changes to previous documentation: The patient presented to labor and delivery in active labor. Her cervix had changed to 4 cm dilation and she was admitted. Admission Diagnosis: Preop diagnosis: labor Related Problem List Diagnoses (1) Anemia affecting : (2) Supervision of other normal : (3) Hypothyroid:
[2021-07-08] VITALS (8 sets, daily range): BP systolic 107–134; BP diastolic 68–86; PULSE 78–94; RESP 16–20; TEMP 36.7–37.2; O2SAT 95–98
[2021-07-08] MEDS: miSOPROStol 200 mcg Tablet 800 MCG PR (01:04)
--- NOTE | 2021-07-08 01:12 | P.PCNOB_ITS ---
Delivery Note: Date of delivery: July 08, 2021 Pre-delivery diagnoses: iup@40w3d, active labor Post-delivery diagnoses: same-delivered Procedure: Delivering Physician: Amanuel Estimated blood loss (mL): 125 Pre-Delivery Course: The patient was admitted in active labor. She stalled at 5 cm dilation and pitocin was started. She had AROM and reached 7 cm dilation. Pitocin was stopped. She continued to contract and had complete cervical dilation. Delivery: The patient had complete cervical dilation and began to push. The head delivered in the a position over an intact perineum under no anesthesia. The nose and mouth were bulb suctioned. The shoulders and body delivered atraumatically. The baby was placed onto the mother's abdomen. The cord was clamped and cut. Cord blood was obtained. The placenta delivered spontaneously. It was inspected and found to be intact. Inspection of the perineum revealed a small first-degree laceration that was hemostatic. No r epair was required. Estimated blood loss 125 mL. Apgars on baby were 8 at 1 minute and 9 at 5 minutes. Weight of baby is 10 pounds 6 ounces. Mother and baby were stable post delivery. History History History 2 Term 1 Miscarriages/Ectopic 0 0 Living Children 1 Coding Level of Care Code Acute Deep Submergence Vehicle Operator for [facility]
[2021-07-08] MEDS: lanolin oint 7 gm 1 APPLIC TOPICAL (02:00)
[2021-07-08] MEDS: benzocaine-menthol 78 gm Canister 1 SPRAY TOPICAL (02:00)
[2021-07-08] MEDS: levothyroxine 25 mcg Tablet PO (09:47)
[2021-07-08] MEDS: prenatal vitamin Capsule 1 CAP PO (09:47)
[2021-07-08] MEDS: ibuprofen 800 mg tablet PO ×3 (09:47→20:38)
[2021-07-08 12:29] LABS: Hematocrit 28.9 % (37.0-47.0); Hemoglobin 9.4 g/dL (11.5-15.3); Mean Corpuscular HGB Conc 32.5 g/dL (30.0-36.0); Mean Corpuscular Hemoglobin 26.5 pg (28.0-34.0); Mean Corpuscular Volume 81.4 fl (81-99); Mean Platelet Volume 10.5 fL (7.4-10.4); Platelet Count 343 10^3/cmm (130-400); Red Blood Count 3.55 10^6/uL (4.1-5.3); Red Cell Distribution Width 14.1 % (12.1-15.1); White Blood Count 15.5 10^3/uL (4.0-10.0)
[2021-07-09 04:55] VITALS: BP 120/81; PULSE 79; RESP 16; TEMP 36.8; O2SAT 98
[2021-07-09 07:00] VITALS: BP 121/81; PULSE 77; RESP 16; TEMP 36.6; TEMP 36.7; O2SAT 96
--- NOTE | 2021-07-09 07:09 | P.DS_ITS ---
Discharge Providers Date of Admission: 07/07/21 09:13 Date of Discharge: July 09, 2021 Attending Provider at Admission: Libby Vital MD Attending Provider at Discharge: Kelly Scherer MD Primary Care Provider: CASTILLO Christie Diagnoses at Discharge Discharge Diagnosis (1) Anemia affecting : Status: Acute (2) Supervision of other normal : Status: Acute (3) Hypothyroid: Status: Acute Reason for Visit Reason for Visit: Abdominal pain Hospital Course Hospital Course The patient was admitted in labor. she had spontaneous delivery of a term . she did well and was ready for discharge on day #1 Physical Exam Narrative: The patient is doing well this morning. No concerns. Const: COMMON NORMALS: no acute distress, patient oriented x3, no limitations, alert and well nourished GENERAL APPEARANCE: cooperative, comfortable, well kempt and well developed ORIENTATION/CONSCIOUSNESS: Yes awake and Yes oriented to person Resp: COMMON NORMALS: normal respiratory effort EFFORT & INSPECTION: Yes able to speak in complete sentences GI: COMMON NORMALS: Soft to palpation and non-tender PALPATION: Yes Soft to palpation Extremity: COMMON NORMALS: no calf tenderness Neuro: COMMON NORMALS: patient oriented x3 SENSORIUM/ORIENTATION: Yes alert and Yes oriented to person Psych: APPEARANCE: Yes well kempt Discharge Data Studies Completed and Pending Laboratory Results WBC 15.5 10^3/uL (4.0-10.0) H 07/08/21 12:08 RBC 3.55 10^6/uL (4.1-5.3) L 07/08/21 12:08 Hgb 9.4 g/dL (11.5-15.3) L 07/08/21 12:08 Hct 28.9 % (37.0-47.0) L 07/08/21 12:08 MCV 81.4 fl (81-99) 07/08/21 12:08 MCH 26.5 pg (28.0-34.0) L 07/08/21 12:08 MCHC 32.5 g/dL (30.0-36.0) 07/08/21 12:08 RDW 14.1 % (12.1-15.1) 07/08/21 12:08 Plt Count 343 10^3/cmm (130-400) 07/08/21 12:08 MPV 10.5 fL (7.4-10.4) H 07/08/21 12:08 Neut % (Auto) 65.3 % 07/07/21 10:35 Lymph % (Auto) 23.6 % 07/07/21 10:35 [place] % (Auto) 8.5 % 07/07/21 10:35 Eos % (Auto) 0.9 % 07/07/21 10:35 Baso % (Auto) 0.5 % 07/07/21 10:35 Neut # (Auto) 8.36 10^3/uL (1.8-7.7) H 07/07/21 10:35 Lymph # (Auto) 3.0 10^3/uL (0.8-4.8) 07/07/21 10:35 [place] # (Auto) 1.1 10^3/uL (0.2-0.9) H 07/07/21 10:35 Eos # (Auto) 0.1 10^3/uL (0.0-0.8) 07/07/21 10:35 Baso # (Auto) 0.1 10^3/uL (0.0-0.1) 07/07/21 10:35 Nucleated RBC % (auto) 0 % 07/07/21 10:35 Nucleated RBCs # 0.0 /100WBC 07/07/21 10:35 Vitals Last Vital Signs Temp 98.2 F 07/09/21 04:55 Pulse 79 07/09/21 04:55 Resp 16 07/09/21 04:55 BP 120/81 07/09/21 04:55 Pulse Ox 98 07/09/21 04:55 Discharge Plan Discharge Patient Disposition: Home Condition: Stable Prescriptions: Continued levothyroxine [Synthroid] 25 mcg tablet 25 mcg PO DAILY 0RF prenat.vits,tr,[id number] Tablet 1 tab PO DAILY 0RF Auryxia 210 mg iron tablet 210 mg PO DAILY 0RF Rx Instructions: administer with a meal acetaminophen 650 mg PO PRN PRN (Reason: Pain) 0RF Discharge Orders: Discharge Order (Routine); Ordered 07/09/21 Ordered By: Libby Vital Patient Instructions: Opioid Safety Discharge Attestations Time Spent in Discharge Care*: less than 30 min Status at Discharge: Cognitive status at discharge: cognitively intact , Behavioral status at discharge: cooperative , Quality Metrics Clinical Quality Measures [ No reported AMI, CVA or VTE this stay] Coding Level of Care Code Acute Chg FW DC note Diagnoses Anemia affecting O99.019 Supervision of other normal Z34.80 Hypothyroid E03.9
[2021-07-09] MEDS: ibuprofen 800 mg tablet PO (10:17)
[2021-07-09] MEDS: prenatal vitamin Capsule 1 CAP PO (10:18)
[2021-07-09] MEDS: docusate sodium 100 mg Capsule PO (10:18)
[2021-07-09 11:45] VITALS: BP 123/79; PULSE 82; RESP 16; TEMP 36.6; O2SAT 97
[2021-07-09 13:15] VITALS: BP 132/83; PULSE 89; RESP 17; TEMP 36.8; O2SAT 99
[2021-07-09 15:44] VITALS: BP 132/83; PULSE 89; RESP 17; TEMP 36.8; O2SAT 99
== END 2021-07-09 13:30 | disposition home or self-care (01) | DRG 807 ==
PROVIDERS: Admitting Provider Obstetrics & Gynecology; PCP Nurse Practitioner; Visit Provider Obstetrics & Gynecology
DX: O99.02 Anemia complicating childbirth (principal); Z37.0 Single live birth; O99.284 Endocrine, nutritional and metabolic diseases complicating childbirth; E03.9 Hypothyroidism, unspecified; Z3A.40 40 weeks gestation of pregnancy; O70.0 First degree perineal laceration during delivery; O48.0 Post-term pregnancy; O99.52 Diseases of the respiratory system complicating childbirth; J45.20 Mild intermittent asthma, uncomplicated
CPT/HCPCS: 36415; 59409; 85025; 85027

== ENCOUNTER 2022-03-24 12:31 | Outpatient (RCR) | payer OTHER, SELFPAY | END 2022-04-03 23:59 | disposition home or self-care (01) | LOC: SPT 12:31 | PROVIDERS: PCP Nurse Practitioner; Visit Provider Nurse Practitioner | DX: N81.4 Uterovaginal prolapse, unspecified (principal) | CPT/HCPCS: 97110; 97161; 97530 ==

== ENCOUNTER 2022-04-04 06:00 | Outpatient (RCR) | payer OTHER, SELFPAY | END 2022-05-04 23:59 | disposition home or self-care (01) | LOC: SPT 06:00 | PROVIDERS: PCP Nurse Practitioner; Visit Provider Nurse Practitioner | DX: N81.4 Uterovaginal prolapse, unspecified (principal) | CPT/HCPCS: 97110 ==

== ENCOUNTER 2022-05-05 06:00 | Outpatient (RCR) | payer OTHER, SELFPAY | END 2022-06-01 23:59 | disposition home or self-care (01) | LOC: SPT 06:00 | PROVIDERS: PCP Nurse Practitioner; Visit Provider Nurse Practitioner | DX: N81.4 Uterovaginal prolapse, unspecified (principal) | CPT/HCPCS: 97110 ==

== ENCOUNTER 2022-06-02 06:00 | Outpatient (RCR) | payer OTHER, SELFPAY | END 2022-07-02 23:59 | disposition home or self-care (01) | LOC: SPT 06:00 | PROVIDERS: PCP Nurse Practitioner; Visit Provider Nurse Practitioner | DX: N81.4 Uterovaginal prolapse, unspecified (principal) | CPT/HCPCS: 97110 ==

== ENCOUNTER 2022-08-02 06:00 | Outpatient (RCR) | payer OTHER, SELFPAY | END 2022-09-01 23:59 | disposition home or self-care (01) | LOC: SPT 06:00 | PROVIDERS: PCP Nurse Practitioner; Visit Provider Nurse Practitioner | DX: N81.4 Uterovaginal prolapse, unspecified (principal) | CPT/HCPCS: 97110 ==

== ENCOUNTER 2022-09-02 06:00 | Outpatient (RCR) | payer OTHER, SELFPAY | END 2022-10-01 23:59 | disposition home or self-care (01) | LOC: SPT 06:00 | PROVIDERS: PCP Nurse Practitioner; Visit Provider Nurse Practitioner | DX: N81.4 Uterovaginal prolapse, unspecified (principal) | CPT/HCPCS: 97110 ==

== ENCOUNTER 2022-11-02 07:10 | Outpatient (RCR) | payer OTHER, SELFPAY | END 2022-11-16 23:59 | disposition home or self-care (01) | LOC: SPT 07:10 | PROVIDERS: PCP Nurse Practitioner; Visit Provider Nurse Practitioner | DX: N81.4 Uterovaginal prolapse, unspecified (principal) | CPT/HCPCS: 97110 ==

== ENCOUNTER 2023-05-03 07:53 | Outpatient (CLI) | payer OTHER, SELFPAY ==
--- NOTE | 2023-05-03 | US_ITS ---
WS: [id number] ULTRASOUND LEFT BREAST, limited HISTORY: LT BREAST PAIN, SWOLLEN AND NIPPLE DISCHARGE, 27-year-old. COMPARISON: None available. TECHNIQUE: 2-D and Doppler. No suspicious masses are identified within the LEFT breast towards the upper outer quadrant. There ar e a few benign-appearing lymph nodes. These lymph nodes have normal fatty gregoria. No nipple retraction. IMPRESSION: US/US breast LT limited* [id number] BI-RADS: 2-Benign FOLLOW-UP: See Report LEFT breast ultrasound directed to the upper outer quadrant demonstrates normal -appearing lymph nodes. No masses are identified.
== END 2023-05-03 07:54 | disposition home or self-care (01) ==
LOC: RAD 07:53
PROVIDERS: PCP Nurse Practitioner; Visit Provider Nurse Practitioner
DX: N64.4 Mastodynia (principal); N64.52 Nipple discharge
CPT/HCPCS: 76642